=== PATIENT | male | born 1935 | race Caucasian/White ===

== ENCOUNTER 2018-08-14 12:22 | Emergency (ER) | END 2018-08-14 18:26 | disposition home or self-care (01) ==

== ENCOUNTER 2019-03-04 22:09 | Inpatient (IN) | payer MEDICARE, BC ==
[~2019-03-04] VITALS: Ht 172.7 cm; Wt 83.8 kg
[~2019-03-04 22:09] MED LIST: ACET-141 PO; DOCU-144 PO; DONE5TAB7 PO; HYDR-3498 PO; LORA1TAB PO; MECL12.574 PO; METO-319 PO; OMEP20CA16 PO; ONDA4TAB14 PO; OXYB10TA6 PO; RSV10T PO; SULF500T5 PO
[2019-03-04] MEDS ORDERED: IOHEXOL 100 ML ONE (22:16)
[2019-03-04] MEDS ORDERED: SOD CHLORIDE 0.9% 100 ML ONE (22:16)
[2019-03-04] MEDS ORDERED: ASPIRIN 325 MG TAB PO ONE (23:30)
--- NOTE | 2019-03-04 23:40 | STROKE ---
Date/Time of Note Date/Time of Note DATE: 03/04/19 TIME: 23:12 Patient Information General Patient location: emergency Arrival Date 03/04/19 Onset Date: March 04, 2019 Age 84 Gender male Weight Clinical Presentation found down with right sided weakness Patient History Past Medical History Hypertension Current Medications Allergies: Coded Allergies: No Known Allergy (Unverified , 12/29/15) Labs Coagulation Labs: Coagulation Test 03/04/19 22:37 Activated Partial Thromboplast Time 32.1 Sec (23.0-35.0) History & Physical History of Present Illness 84 yo M with HTN who was found down with right sided weakness at around 6:30pm on 03/04/19 by his family. They previously saw him normal earlier this morning after breakfast. The family subsequently went out to dinner together and also noticed clumsiness with his right hand. Review of Systems All Other Systems: Reviewed and Negative NIH Stroke Scale NIH Stroke Scale [id number] opia [id number] limb [id number] Dysarthria: Tudcz7i l Score: [id number] Date/Time Recorded DATE: 03/04/19 TIME: 23:12 Submitted By Francisco Peguero t-PA Imaging Review Date/Time Imaging Reviewed DATE: 03/04/19 TIME: 23:12 t-PA Administration Recommendation: No Weight Recommedation submitted by Francisco Peguero Reason t-PA not Recommended Presenting outside the eligible time window t-PA Not Recommended Date/Time 03/04/19 22:28 Recommendations Impression [address] Site: [address] Cerebral arteries Diagnosis 84 yo M with vascular risk factors who presents with right sided weakness, dysarthria, and clumsy hand. NIHSS 3. CT studies were negative for acute processes, including no large vessel occlusion or flow limiting stenosis. TPA was not recommended as he presented outside the eligible time window. The leading etiology is ischemic stroke, likely lacunar syndrome. Recommendation 1) MRI/MRA Brain head/neck to determine stroke burden 2) Neurology consult to guide ischemic/embolic workup: TTE w bubble, LDL, A1c, telemetry admission. 3) permissive HTN for 24h (treat for SBP>220). 4) medical workup to evaluate for other provoking causes (ie infection, metabolic derangement). 5) start dual antiplatelets (ASA81 and Plavix 75 daily) x 21 days then ASA 81 monotherapy thereafter FRANCISCO PEGUERO MD March 04, 2019 23:35
[2019-03-05] VITALS (9 sets, daily range): BP systolic 147–157; BP diastolic 66–75; PULSE 68–77; RESP 18–20; Ht 172.7 cm; Wt 83.8 kg
[2019-03-05] MEDS ORDERED: CLOPIDOGREL 75 MG TAB PO ONE
--- NOTE | 2019-03-05 01:10 | ERD ---
ER Documentation Chief Complaint Chief Complaint Facial droop and weakness HPI This is an 84-year-old male brought in by family after having acute onset of right-sided facial droop and weakness when they saw him at 6:30 PM approximately 4 hours prior to arrival. According to the family last exam completely normal was this morning. Apparently had dysarthria difficulty word finding, and difficulty with pjppcy-ky-[id number] and putting food in his mouth. They brought him in at today noticed that it was worse at dinner. Upon arrival patient does have a facial droop and mild dysarthria. Code stroke was immediately called and patient was taken to CAT scan. Telemetry neurology was also consulted immediately ROS All systems reviewed and are negative except as per history of present illness. Medications Home Meds Active Scripts Ondansetron (Ondansetron Odt) 4 Mg Tab.rapdis, 4 MG PO Q6H PRN for NAUSEA AND/OR VOMITING, #10 TAB Prov:ARGELIA TILLMAN MD 08/14/18 Meclizine Hcl* (Antivert*) 12.5 Mg Tab, 25 MG PO Q6H PRN for DIZZINESS, #20 TAB Prov:ARGELIA TILLMAN MD 08/14/18 Docusate Sodium* (Colace*) 100 Mg Capsule, 100 MG PO DAILY, #30 CAP Prov:TANYA NASH MD 12/29/15 Hydrocodone Bit-Acetaminophen* ([place]*) 5-325 Mg Tab, 1 TAB PO Q6 PRN for PAIN, #20 TAB Prov:TANYA NASH MD 12/29/15 Reported Medications Acetaminophen* (Acetaminophen*) 500 MG Extra Strength Tablet, 500 MG PO Q4H PRN for PAIN AND OR ELEVATED TEMP, TAB 12/29/15 Lorazepam* (Lorazepam*) 1 Mg Tablet, 1 MG PO HS PRN for SLEEP, #30 TAB 12/29/15 Omeprazole* (Omeprazole*) 20 Mg Capsule.dr, 20 MG PO DAILY, #30 CAP 12/29/15 Sulfasalazine* (Sulfazine*) 500 Mg Tablet, 1000 MG PO QID, TAB 12/29/15 Oxybutynin Chloride* (Ditropan* XL) 10 Mg Tab.er.24, 10 MG PO DAILY, TAB.SA 12/29/15 Donepezil* (Donepezil*) 5 Mg Tablet, 5 MG PO BID, #30 TAB 12/29/15 Rosuvastatin Calcium* (Crestor*) 10 Mg Tablet, 10 MG PO QHS, #30 TAB 12/29/15 Metoprolol Succinate* (Toprol XL*) 50 Mg Tab.er.24h, 50 MG PO DAILY, #30 TAB 12/29/15 Allergies Allergies: Coded Allergies: No Known Allergy (Unverified , 12/29/15) PMhx/Soc History of Surgery: No Anesthesia Reaction: No Hx 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 Disorder: No Hx Respiratory Disorders: No Hx Cardiac Disorders: Yes (HTN) Hx Psychiatric Problems: No Hx Miscellaneous Medical Probl: Yes (Prostate, Leukemia) Hx Alcohol Use: No Hx Substance Use: No Hx Tobacco Use: No Physical Exam Vitals Vital Signs Date Temp Pulse Resp B/P (MAP) Pulse Ox O2 O2 Flow FiO2 Time Delivery Rate 03/04/19 56 16 177/87 98 Room Air 22:30 (117) Physical Exam Const: No acute distress Head: Atraumatic Eyes: Normal Conjunctiva ENT: Normal External Ears, Nose and Mouth. Neck: Full range of motion. No meningismus. Resp: Clear to auscultation bilaterally Cardio: Regular rate and rhythm, no murmurs Abd: Soft, non tender, non distended. Normal bowel sounds Skin: No petechiae or rashes Back: No midline or flank tenderness Ext: No cyanosis, or edema Neur: Awake and alert, right-sided facial droop noted with forehead sparing. Right-sided cerebellar function is not intact on [id number] and pogq-oj-jewq. Psych: Normal Mood and Affect Result Diagram: 03/04/19223603/04/192236 Results 24 hrs Laboratory Tests Test 03/04/19 22:37 White Blood Count 7.5 10^3/ul Red Blood Count 3.21 10^6/ul Hemoglobin 9.6 g/dl Hematocrit 31.2 % Mean Corpuscular Volume 97.2 fl Mean Corpuscular Hemoglobin 29.9 pg Mean Corpuscular Hemoglobin Concent 30.8 g/dl Red Cell Distribution Width 14.2 % Platelet Count 198 10^3/UL Mean Platelet Volume 8.0 fl Immature Granulocytes % 0.400 % Neutrophils % 38.7 % Lymphocytes % 43.5 % Monocytes % 11.6 % Eosinophils % 5.1 % Basophils % 0.7 % Nucleated Red Blood Cells % 0.0 /100WBC Immature Granulocytes # 0.030 10^3/ul Neutrophils # 2.9 10^3/ul Lymphocytes # 3.3 10^3/ul Monocytes # 0.9 10^3/ul Eosinophils # 0.4 10^3/ul Basophils # 0.1 10^3/ul Nucleated Red Blood Cells # 0.0 10^3/ul Prothrombin Time 14.2 Sec Prothrombin Time Ratio 1.1 INR International Normalized Ratio 1.09 Activated Partial Thromboplast Time 32.1 Sec Sodium Level 141 mmol/L Potassium Level 3.4 mmol/L Chloride Level 108 mmol/L Carbon Dioxide Level 26 mmol/L Anion Gap 7 Blood Urea Nitrogen 31 mg/dl Creatinine 0.92 mg/dl Est Glomerular Filtrat Rate mL/min mL/min Glucose Level 132 mg/dl Hemoglobin A1c 5.4 % Calcium Level 8.2 mg/dl Total Bilirubin 0.0 mg/dl Direct Bilirubin 0.00 mg/dl Indirect Bilirubin 0.0 mg/dl Aspartate Amino Transf (AST/SGOT) 18 IU/L Alanine Aminotransferase (ALT/SGPT) 23 IU/L Alkaline Phosphatase 87 IU/L Creatine Kinase 127 IU/L Creatine Kinase Index 1.8 Creatinine Kinase MB (Mass) 2.30 ng/ml Troponin I < 0.012 ng/ml Total Protein 6.2 g/dl Albumin 3.0 g/dl Globulin 3.20 g/dl Albumin/Globulin Ratio 0.93 Triglycerides Level 98 mg/dl Cholesterol Level 101 mg/dl LDL Cholesterol, Calculated 58 mg/dl HDL Cholesterol 23 mg/dl Cholesterol/HDL Ratio 4.3 RATIO Ethyl Alcohol Level < 10.0 mg/dl Current Medications Medications Dose Sig/Jose De Jesus Start Time Status Last (Trade) Ordered Route PRN Stop Time Admin Dose Reason Admin IV Flush 10 ml STK-MED 03/04/19 DC 03/04/19 (NS 10 ml) ONCE .ROUTE 22:16 03/04/19 22:16 22:17 Sodium 100 ml @ ud STK-MED 03/04/19 DC 03/04/19 Chloride ONCE .ROUTE 22:16 03/04/19 22:16 22:17 Iohexol 100 ml @ ud STK-MED 03/04/19 DC ONCE .ROUTE 22:16 03/04/19 22:17 Aspirin 325 mg ONCE ONCE 03/04/19 DC 03/04/19 (Aspirin) PO 23:30 03/04/19 23:46 23:31 Clopidogrel 75 mg ONCE ONCE 03/05/19 DC 03/05/19 Bisulfate PO 00:00 03/05/19 00:48 (plaVIX) 00:01 Procedures/MDM Emergency department course: Patient seen and evaluate triage and was immediately notified the ER MD. Code stroke called. Telemetry neurology paged. Patient taken to CT for noncontrast head CT along with CT angios of the head and neck. Upon arrival back from CAT scan, patient's symptoms had completely resolved. After discussing with telemetry neurology, patient was obviously not a TPA candidate, however he did recommend aspirin and Plavix which was given. Patient's primary care physician is Dr. Hendrix. On-call physician Dr. Rodríguez was notified of admission. Family kept apprised of all results EKG: Rate/Rhythm: [Normal Sinus Rhythm] QRS, ST, T-waves: [No changes consistent w/ acute ischemia] Impression: [No evidence of ischemia or arrhythmia] Chest X-ray 1V Interpreted by me: Soft Tissue: No acute abnormalities Bones: No acute abnormalities Mediastinum/Cardiac Silhouette/Lungs: [No acute abnormalities] . Medical decision making: This is an 84-year-old male who at this point must be considered a TIA. Patient is on aspirin and Plavix per telemetry neurology r equest. Patient admitted to on-call physician for primary care physician. Admitted to telemetric setting. Continues to have stable neurological exam here in the emergency department. Critical Care: Time: 45 minutes, independent of any separately billable procedural time Treatments/Evaluations: Close monitoring and treatment of unstable vital signs, cardiorespiratory, and neurologic status, while maintaining tight balance of fluid, respiratory, and cardiac interventions. Departure Diagnosis: Primary Impression: TIA (transient ischemic attack) Condition: Critical CHARLES CANTRELL March 05, 2019 01:10
[2019-03-05] MEDS ORDERED: hydrALAzine 20 MG INJ IV ONE (06:00)
[2019-03-05] MEDS ORDERED: DONE5TAB7 PO (07:36)
[2019-03-05] MEDS ORDERED: METO-319 PO (07:37)
[2019-03-05] MEDS ORDERED: LORA1TAB PO (07:37)
[2019-03-05] MEDS ORDERED: OMEP20CA16 PO (07:37)
[2019-03-05] MEDS ORDERED: RSV10T PO (07:38)
[2019-03-05] MEDS ORDERED: MEMA5TAB PO (07:38)
[2019-03-05] MEDS ORDERED: OXYB5TAB22 PO (07:38)
[2019-03-05] MEDS ORDERED: ACETAMINOPHEN 325 MG TAB PO PRN (13:00)
[2019-03-05] MEDS ORDERED: NACL 0.9% 3 ML SYG IV SCH (13:00)
[2019-03-05] MEDS ORDERED: ONDANSETRON 4 MG TAB PO PRN (13:00)
[2019-03-05] MEDS ORDERED: POTASSIUM CHLORIDE (SR) 10 MEQ TAB PO ONE (13:00)
[2019-03-05] MEDS ORDERED: DOCUSATE SODIUM 100 MG CAP PO PRN (13:00)
[2019-03-05] MEDS: SOD CHLORIDE 0.9% 1,000 ML IV SCH (14:02)
[2019-03-05] MEDS: SULFASALAZINE 500 MG TAB PO SCH ×3 (14:03→20:25)
--- NOTE | 2019-03-05 14:49 | HP ---
DATE OF ADMISSION: 03/04/2019 IDENTIFYING DATA: The patient is an 84-year-old male admitted to the hospital with weakness of the r ight side of his face and right upper extremity approximately 18 hours ago. HISTORICAL EVENTS: As revealed to me by the patient's and son at the bedside, it was yesterday late afternoon when they returned home and found the patient sitting on the floor, alert. Given the patient's dementia he has no recollection of falling or even being on the floor. They were able to g et him up and walk him, although his legs were quite wobbly. He seemed to have some drooping involvi ng the right side of his face and had difficulty trying to feed himself with poor coordination of the right upper extremity. Because of this, the patient was ultimately brought to [facility] and evaluated. Today, the patient notes no headache, pathologic visual symptoms, nausea, vomiting, a bdominal pain, chest pain, palpitations. There has been no history of recent head trauma. 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 History of acute myel ogenous leukemia in 1999, having remained in remission. 2. History of Crohn's colitis. 3. Former smoker. 4. Stress echo in 01/2011 revealed no ischemia. 5. History of hypertension. 6. Hyperlipidemia. 7. History of prostate cancer treated with radiation and history of benign bladder tumor followed by urology. 8. History of right leg sciatica. MRI unrevealing. Remote. 9. History of vitamin D deficiency. PRESENT MEDICATIONS: 1. Namenda 5 mg b.i.d. 2. Aricept 5 mg b.i.d. 3. Sulfasalazine 500 mg 2 tablets 4 times a day. 4. Ditropan XL 10 mg per day. 5. Omeprazole 20 mg per day. 6. Metoprolol 50 mg per day. SOCIAL HISTORY: . Does not drink. Prior smoker. PHYSICAL EXAMINATION: GENERAL: [place] male, no acute distress. VITAL SIGNS: BP 126/80, pulse 72, respirations were 18. He was afebrile. EYES: Extraocular muscles were full. NOSE, MOUTH, AND THROAT: Normal. NECK: Supple without jugular venous distention, thyroid enlargement or adenopathy. Carotids 2+, no bruits. LUNGS: Clear. HEART: Rhythm regular, I/ systolic murmur. No third or fourth sound. ABDOMEN: Nontender. Liver and spleen were not palpable. No mass or tenderness was noted. EXTREMITIES: No edema. Calves nontender. Pulses reduced distally. NEUROLOGIC: No lateralizing motor weakness. He was not oriented to person, place and time. IMPRESSION: 1. Likely transient ischemic attack. 2. Known cerebrovascular disease. 3. History of hypertension. 4. 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 PLAN: Echocardiogram to be obtained. Neuro and cardiology to evaluate, dysrhythmia to have to be ex cluded. PT to be certain safe with ambulation. Unclear to me why he was not on aspirin but clearly this is needed at this point. Dictated By: JOSUE LYNCH/JOCELYNN Conf#: [id number] DID#: [id number]
--- NOTE | 2019-03-05 14:57 | CONS ---
Assessment/Plan Assessment/Plan Hospital Course 84 yo M with hx of dementia and cerebrovascular risk factors who presents for evaluation of a transient R face/arm weakness... for which neurology is consulted. The clinical picture is most ominously concerning for TIA/minor stroke. Seizure is less likely, though additionally considered. Recrudescence is a diagnosis of exclusion. CTH is without acute intracranial pathology, though notable for chronic R basal ganglia infarct. CTA H/N is notable for mild, generalized intracranial athero. P: Await MRI/MRA brain without contrast for further characterization Agree with ASA/Lipitor for secondary stroke prevention Permissive HTN (up to 220/110) for 24h pending the above Await UA [place] as necessary Ok to continue Aricept/Namenda per ops PT/OT/ST as necessary Will follow clinically, to recommend neurologic studies, as necessary Consultation Date/Type/Reason Admit Date/Time March 04, 2019 at 23:23 Type of Consult Neurology Reason for Consultation R face/arm weakness Requesting Provider: JOSUE WADE MD Date/Time of Note DATE: 03/05/19 TIME: 14:57 Hx of Present Illness 84 yo M with hx of dementia, HTN, HLD, and other comorbidities who presented to the ED with c/o R face/arm weakness. History was obtained from pt, , and chart review. Per the , the pt was eating dinner yesterday around 6:30pm when his family noticed that he had a R facial droop. He also states that he tried to pick and shovel man food with his R hand and was unable to do so. They state that it lasted for about 45 minutes before completely resolving. Out of concern for a possible stroke, his family took him to the ED. He currently denies any headache, dizziness, lethargy, confusion, weakness, vision or speech changes, numbness or tingling. He reportedly has unsteady gait at his baseline and ambulates with a walker. It is additionally elsewhere noted: IDENTIFYING DATA: The patient is an 84-year-old male admitted to the hospital with weakness of the right side of his face and right upper extremity approximately 18 hours ago. HISTORICAL EVENTS: As revealed to me by the patient's and son at the bedside, it was yesterday late afternoon when they returned home and found the patient sitting on the floor, alert. Given the patient's dementia he has no recollection of falling or even being on the floor. They were able to get him up and walk him, although his legs were quite wobbly. He seemed to have some drooping involving the right side of his face and had difficulty trying to feed himself with poor coordination of the right upper extremity. Because of this, the patient was ultimately brought to [facility] and evaluated. Today, the patient notes no headache, pathologic visual symptoms, nausea, vomiting, abdominal pain, chest pain, palpitations. There has been no history of recent head trauma. negative unless otherwise noted in HPI Exam/Review of Systems Exam Vitals Vital Signs Date Temp Pulse Resp B/P (MAP) Pulse Ox O2 O2 Flow FiO2 Time Delivery Rate 03/05/19 77 13:32 03/05/19 98.0 20 157/68 95 12:06 (97) 03/05/19 Room Air 10:30 Exam PE: Gen Appearance: No Apparent Distress HEENT: Normocephalic Cardiovascular: Regular rate Lungs: Clear bilaterally Abdomen: Soft Extremities: Dry NE: The patient was alert and oriented. Language was normal. Fund of knowledge was normal. Pupils were equal and reactive to light. There was no afferent pupillary defect. Visual pelayo were normal. Funduscopic examination was limited. Extra-ocular movements were full. Ptosis was absent. There was no nystagmus. Facial sensation was normal. Face was symmetric with normal strength. Hearing was intact. Palate movements were normal. Neck strength was normal. There was normal tongue bulk and speed of movement. Tone was normal. Muscle bulk was normal. I did not see fasciculations. Arms and legs were strong to confrontation. Vibration sensation was normal. Temperature and pinprick sensation was normal. Rapid alternating movements were normal. There was minor dysmetria in the RUE. There was no intention tremor. Gait was deferred due to bedrest. Arm and leg reflexes were 2+ and symmetric. Genao's sign was absent. Plantar responses were flexor. Results Result Diagram: 03/04/19223603/04/192236 Results 24hrs Laboratory Tests Test 03/04/19 22:37 White Blood Count 7.5 # Red Blood Count 3.21 #L Hemoglobin 9.6 #L Hematocrit 31.2 #L Mean Corpuscular Volume 97.2 Mean Corpuscular Hemoglobin 29.9 Mean Corpuscular Hemoglobin Concent 30.8 L Red Cell Distribution Width 14.2 Platelet Count 198 # Mean Platelet Volume 8.0 Immature Granulocytes % 0.400 Neutrophils % 38.7 L Lymphocytes % 43.5 Monocytes % 11.6 H Eosinophils % 5.1 Basophils % 0.7 Nucleated Red Blood Cells % 0.0 Immature Granulocytes # 0.030 Neutrophils # 2.9 Lymphocytes # 3.3 H Monocytes # 0.9 Eosinophils # 0.4 Basophils # 0.1 Nucleated Red Blood Cells # 0.0 Prothrombin Time 14.2 Prothrombin Time Ratio 1.1 INR International Normalized Ratio 1.09 Activated Partial Thromboplast Time 32.1 Sodium Level 141 Potassium Level 3.4 L Chloride Level 108 Carbon Dioxide Level 26 Anion Gap 7 Blood Urea Nitrogen 31 H Creatinine 0.92 Est Glomerular Filtrat Rate mL/min Glucose Level 132 Hemoglobin A1c 5.4 Calcium Level 8.2 L Total Bilirubin 0.0 L Direct Bilirubin 0.00 Indirect Bilirubin 0.0 Aspartate Amino Transf (AST/SGOT) 18 Alanine Aminotransferase (ALT/SGPT) 23 Alkaline Phosphatase 87 Creatine Kinase 127 Creatine Kinase Index 1.8 Creatinine Kinase MB (Mass) 2.30 Troponin I < 0.012 Total Protein 6.2 Albumin 3.0 L Globulin 3.20 Albumin/Globulin Ratio 0.93 Triglycerides Level 98 Cholesterol Level 101 LDL Cholesterol, Calculated 58 HDL Cholesterol 23 L Cholesterol/HDL Ratio 4.3 Ethyl Alcohol Level < 10.0 H Medications Medication Current Medications IV Flush (NS 3 ml) 3 ml PER PROTOCOL IV ; Start 03/05/19 at 13:00 Ondansetron HCl (Zofran Tab) 4 mg Q6H PRN PO NAUSEA/VOMITING; Start 03/05/19 at 13:00 Acetaminophen (Tylenol Tab) 650 mg Q6H PRN PO .PAIN 1-3 OR TEMP; Start 03/05/19 at 13:00 Docusate Sodium (Colace) 100 mg Q12H PRN PO .CONSTIPATION; Start 03/05/19 at 13:00 Sodium Chloride 1,000 ml @ 50 mls/hr Q20H IV Last administered on 03/05/19at 14:02; Admin Dose 50 MLS/HR; Start 03/05/19 at 13:00 Aspirin (Ecotrin) 325 mg DAILY PO ; Start 03/06/19 at 09:00 Atorvastatin Calcium (Lipitor) 10 mg HS PO ; Start 03/05/19 at 21:00 Metoprolol Succinate (Toprol Xl) 25 mg BID PO ; Start 03/05/19 at 21:00 Sulfasalazine (Azulfidine) 1,000 mg QID PO Last administered on 03/05/19at 14:03; Admin Dose 1,000 MG; Start 03/05/19 at 13:00 Oxybutynin Chloride (Ditropan Xl) 10 mg DAILY PO ; Start 03/06/19 at 09:00 Pantoprazole (Protonix Tab) 40 mg DAILY@06 PO ; Start 03/06/19 at 06:00 Donepezil HCl (Aricept) 5 mg BID PO ; Start 03/05/19 at 21:00 Past Medical History reviewed Home Meds Reported Medications Memantine* (Namenda*) 5 Mg Tablet, 5 MG PO BID, #60 TAB 03/05/19 Rosuvastatin Calcium* (Crestor*) 10 Mg Tablet, 10 MG PO QHS, #30 TAB 03/05/19 Oxybutynin Chloride* (Ditropan* XL) 5 Mg Tabsr, 5 MG PO DAILY, TAB.SA 03/05/19 Omeprazole* (Omeprazole*) 20 Mg Capsule.dr, 20 MG PO DAILY, #30 CAP 03/05/19 Metoprolol Succinate* (Toprol XL*) 50 Mg Tab.er.24h, 50 MG PO DAILY, #30 TAB 03/05/19 Lorazepam* (Lorazepam*) 1 Mg Tablet, 1 MG PO HS PRN for SLEEP, #30 TAB 03/05/19 Donepezil* (Donepezil*) 5 Mg Tablet, 5 MG PO BID, #30 TAB 03/05/19 Discontinued Reported Medications Acetaminophen* (Acetaminophen*) 500 MG Extra Strength Tablet, 500 MG PO Q4H PRN for PAIN AND OR ELEVATED TEMP, TAB 12/29/15 Lorazepam* (Lorazepam*) 1 Mg Tablet, 1 MG PO HS PRN for SLEEP, #30 TAB 12/29/15 Omeprazole* (Omeprazole*) 20 Mg Capsule.dr, 20 MG PO DAILY, #30 CAP 12/29/15 Sulfasalazine* (Sulfazine*) 500 Mg Tablet, 1000 MG PO QID, TAB 12/29/15 Oxybutynin Chloride* (Ditropan* XL) 10 Mg Tab.er.24, 10 MG PO DAILY, TAB.SA 12/29/15 Donepezil* (Donepezil*) 5 Mg Tablet, 5 MG PO BID, #30 TAB 12/29/15 Rosuvastatin Calcium* (Crestor*) 10 Mg Tablet, 10 MG PO QHS, #30 TAB 12/29/15 Metoprolol Succinate* (Toprol XL*) 50 Mg Tab.er.24h, 50 MG PO DAILY, #30 TAB 12/29/15 Discontinued Scripts Ondansetron (Ondansetron Odt) 4 Mg Tab.rapdis, 4 MG PO Q6H PRN for NAUSEA AND/OR VOMITING, #10 TAB Prov:ARGELIA TILLMAN MD 08/14/18 Meclizine Hcl* (Antivert*) 12.5 Mg Tab, 25 MG PO Q6H PRN for DIZZINESS, #20 TAB Prov:ARGELIA TILLMAN MD 08/14/18 Docusate Sodium* (Colace*) 100 Mg Capsule, 100 MG PO DAILY, #30 CAP Prov:TANYA NASH MD 12/29/15 Hydrocodone Bit-Acetaminophen* ([place]*) 5-325 Mg Tab, 1 TAB PO Q6 PRN for PAIN, #20 TAB Prov:TANYA NASH MD 12/29/15 Medications Current Medications IV Flush (NS 3 ml) 3 ml PER PROTOCOL IV ; Start 03/05/19 at 13:00 Ondansetron HCl (Zofran Tab) 4 mg Q6H PRN PO NAUSEA/VOMITING; Start 03/05/19 at 13:00 Acetaminophen (Tylenol Tab) 650 mg Q6H PRN PO .PAIN 1-3 OR TEMP; Start 03/05/19 at 13:00 Docusate Sodium (Colace) 100 mg Q12H PRN PO .CONSTIPATION; Start 03/05/19 at 13:00 Sodium Chloride 1,000 ml @ 50 mls/hr Q20H IV Last administered on 03/05/19at 14:02; Admin Dose 50 MLS/HR; Start 03/05/19 at 13:00 Aspirin (Ecotrin) 325 mg DAILY PO ; Start 03/06/19 at 09:00 Atorvastatin Calcium (Lipitor) 10 mg HS PO ; Start 03/05/19 at 21:00 Metoprolol Succinate (Toprol Xl) 25 mg BID PO ; Start 03/05/19 at 21:00 Sulfasalazine (Azulfidine) 1,000 mg QID PO Last administered on 03/05/19at 14:03; Admin Dose 1,000 MG; Start 03/05/19 at 13:00 Oxybutynin Chloride (Ditropan Xl) 10 mg DAILY PO ; Start 03/06/19 at 09:00 Pantoprazole (Protonix Tab) 40 mg DAILY@06 PO ; Start 03/06/19 at 06:00 Donepezil HCl (Aricept) 5 mg BID PO ; Start 03/05/19 at 21:00 Allergies: Coded Allergies: No Known Allergy (Unverified , 03/05/19) Social History Smoking Status: Never smoker CASSANDRA FULLER NP March 05, 2019 14:57 JULIANNA ELLIOTT March 05, 2019 17:33
[2019-03-05] MEDS: ATORVASTATIN 10 MG TAB PO SCH (20:24)
[2019-03-05] MEDS: DONEPEZIL 5 MG TAB PO SCH (20:25)
[2019-03-05] MEDS: METOPROLOL (XL) 25 MG TAB PO SCH (20:25)
[2019-03-05] MEDS ORDERED: LORAZEPAM 1 MG TAB PO PRN ×2 (20:30)
[2019-03-05] MEDS ORDERED: DONEPEZIL 5 MG TAB PO SCH (21:00)
[2019-03-06] VITALS (13 sets, daily range): BP systolic 122–190; BP diastolic 68–106; PULSE 65–87; RESP 18–20
[2019-03-06] MEDS: PANTOPRAZOLE (EC) 40 MG TAB PO SCH (05:01)
[2019-03-06] MEDS: DONEPEZIL 5 MG TAB PO SCH ×2 (08:19→20:38)
[2019-03-06] MEDS: SULFASALAZINE 500 MG TAB PO SCH ×4 (08:19→20:39)
[2019-03-06] MEDS: OXYBUTYNIN (XL) 5 MG TAB PO SCH (08:19)
[2019-03-06] MEDS: ASPIRIN (EC) 325 MG TAB PO SCH (08:19)
[2019-03-06] MEDS: METOPROLOL (XL) 25 MG TAB PO SCH ×2 (08:20→20:39)
--- NOTE | 2019-03-06 08:30 | PN ---
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 MRI and MRA pending, cards to see, echo pending 2. HBP, controlled, inc BP parameter to avoid hypotension 3. PT to see 4. Cognitive impairment unchanged Result Diagram: 03/06/19 0711 03/06/19 0711 Results 24hrs Laboratory Tests Test 03/06/19 07:11 03/06/19 07:12 White Blood Count 8.0 Red Blood Count 3.78 L Hemoglobin 11.6 #L Hematocrit 35.9 L Mean Corpuscular Volume 95.0 Mean Corpuscular Hemoglobin 30.7 Mean Corpuscular Hemoglobin Concent 32.3 Red Cell Distribution Width 14.5 Platelet Count 263 # Mean Platelet Volume 8.6 Immature Granulocytes % 0.200 Neutrophils % 53.1 Lymphocytes % 34.2 Monocytes % 8.6 Eosinophils % 3.2 Basophils % 0.7 Nucleated Red Blood Cells % 0.0 Immature Granulocytes # 0.020 Neutrophils # 4.2 Lymphocytes # 2.7 Monocytes # 0.7 Eosinophils # 0.3 Basophils # 0.1 Nucleated Red Blood Cells # 0.0 Sodium Level 143 Potassium Level 3.7 Chloride Level 109 Carbon Dioxide Level 23 Anion Gap 11 Blood Urea Nitrogen 24 H Creatinine 0.89 Est Glomerular Filtrat Rate mL/min Glucose Level 119 Calcium Level 9.6 Phosphorus Level 3.3 Magnesium Level 2.2 Iron Level 92 Total Iron Binding Capacity Pending Percent Iron Saturation Pending Hemoglobin A1c 5.4 Subjective 24 Hr Interval Summary Respiratory: No cough, No shortness of breath Cardiovascular: no complaints Gastrointestinal: no complaints Genitourinary: no complaints Musculoskeletal: no complaints Neurologic: No dizziness, No focal-weakness, No headache Exam/Review of Systems Exam Vitals Vital Signs Date Temp Pulse Resp B/P (MAP) Pulse Ox O2 O2 Flow FiO2 Time Delivery Rate 03/06/19 97.4 79 20 182/106 94 Room Air 07:37 (131) Intake and Output 03/05/19 03/05/19 03/06/19 1515:00 23:00 07:00 IntakeIntake Total 400 ml 1060 ml OutputOutput Total 2 ml 350 ml BalanceBalance 398 ml 710 ml Neck: No jvd Respiratory: clear to auscultation Gastrointestinal: soft Extremities: No edema 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: other (right facial and rue weakness) Results Results 24hrs Laboratory Tests Test 03/06/19 07:11 03/06/19 07:12 White Blood Count 8.0 Red Blood Count 3.78 L Hemoglobin 11.6 #L Hematocrit 35.9 L Mean Corpuscular Volume 95.0 Mean Corpuscular Hemoglobin 30.7 Mean Corpuscular Hemoglobin Concent 32.3 Red Cell Distribution Width 14.5 Platelet Count 263 # Mean Platelet Volume 8.6 Immature Granulocytes % 0.200 Neutrophils % 53.1 Lymphocytes % 34.2 Monocytes % 8.6 Eosinophils % 3.2 Basophils % 0.7 Nucleated Red Blood Cells % 0.0 Immature Granulocytes # 0.020 Neutrophils # 4.2 Lymphocytes # 2.7 Monocytes # 0.7 Eosinophils # 0.3 Basophils # 0.1 Nucleated Red Blood Cells # 0.0 Sodium Level 143 Potassium Level 3.7 Chloride Level 109 Carbon Dioxide Level 23 Anion Gap 11 Blood Urea Nitrogen 24 H Creatinine 0.89 Est Glomerular Filtrat Rate mL/min Glucose Level 119 Calcium Level 9.6 Phosphorus Level 3.3 Magnesium Level 2.2 Iron Level 92 Total Iron Binding Capacity Pending Percent Iron Saturation Pending Hemoglobin A1c 5.4 Medications Medication Current Medications IV Flush (NS 3 ml) 3 ml PER PROTOCOL IV ; Start 03/05/19 at 13:00 Ondansetron HCl (Zofran Tab) 4 mg Q6H PRN PO NAUSEA/VOMITING; Start 03/05/19 at 13:00 Acetaminophen (Tylenol Tab) 650 mg Q6H PRN PO .PAIN 1-3 OR TEMP; Start 03/05/19 at 13:00 Docusate Sodium (Colace) 100 mg Q12H PRN PO .CONSTIPATION; Start 03/05/19 at 13:00 Sodium Chloride 1,000 ml @ 50 mls/hr Q20H IV Last administered on 03/05/19at 14:02; Admin Dose 50 MLS/HR; Start 03/05/19 at 13:00 Aspirin (Ecotrin) 325 mg DAILY PO ; Start 03/06/19 at 09:00 Atorvastatin Calcium (Lipitor) 10 mg HS PO Last administered on 03/05/19 20:24; Admin Dose 10 MG; Start 03/05/19 at 21:00 Metoprolol Succinate (Toprol Xl) 25 mg BID PO Last administered on 03/05/19 20:25; Admin Dose 25 MG; Start 03/05/19 at 21:00 Sulfasalazine (Azulfidine) 1,000 mg QID PO Last administered on 03/06/19 08:19; Admin Dose 1,000 MG; Start 03/05/19 at 13:00 Oxybutynin Chloride (Ditropan Xl) 10 mg DAILY PO ; Start 03/06/19 at 09:00 Pantoprazole (Protonix Tab) 40 mg DAILY@06 PO Last administered on 03/06/19 05:01; Admin Dose 40 MG; Start 03/06/19 at 06:00 Donepezil HCl (Aricept) 5 mg BID PO Last administered on 03/05/19 20:25; Admin Dose 5 MG; Start 03/05/19 at 21:00 Lorazepam (Ativan) 1 mg HS PRN PO SLEEP Last administered on 03/06/19 05:01; Admin Dose 1 MG; Start 03/05/19 at 20:30 Lorazepam (Ativan) 1 mg Q8H PRN PO ANXIETY/AGITATION Last administered on 03/05/19 20:25; Admin Dose 1 MG; Start 03/05/19 at 20:30 JOSUE WADE MD March 06, 2019 08:30
[2019-03-06] MEDS: SOD CHLORIDE 0.9% 1,000 ML IV SCH (09:00)
[2019-03-06] MEDS: NIFEdipine (XL) 30 MG TAB PO SCH ×2 (10:49→20:38)
[2019-03-06] MEDS ORDERED: NIFEdipine (XL) 30 MG TAB PO SCH (11:00)
--- NOTE | 2019-03-06 13:32 | RADRPT ---
Vent Rate: 75 bpm RR Interval: 796 msec KS Interval: 227 msec QRS Duration: 143 msec QT Interval: 459 msec QTC Interval: 514 msec P-R-T [place]: 66 - -3 - 65 degrees Sinus rhythm...normal P axis, V-rate 50- 99 Multiple ventricular premature complexes...V complexes w/ short R-R intervls Prolonged KS interval...KS >220, V-rate 50- 90 Right bundle branch block...QRSd>120, terminal axis(90,270) Prolonged QT interval...QTc >500mS Electronically Signed By: Chico Colbert
--- NOTE | 2019-03-06 13:53 | RADRPT ---
Echocardiogram Report Patient Name: STEPHANY CONNELLPatient ID: [id number] : 1935 (84y 2m)Study Date: 03/05/2019 1:16:00 PM Gender: MAccession #: [id number] Tech: Hamilton yAala [facility] Location: 3[address] Ref.Physician: JOSUE WADE Height(Cm): BSA: Weight(Kg): Quality: AdequateAccount #: Procedures: Echocardiographic Report: Transthoracic echocardiogram with complete 2D, M-Mode, and doppler examination. Indications: Transient Ischemic Attack. Measurements: 2D/M Mode Doppler Measurement Value Normal Range Measurement Value Normal Range LVIDd 2D 3.9 [ 4.2 - 5.8 ] cm AV Peak Ayden 1.4 [ 100.0 - 170.0 ] cm/sec LVIDs 2D 2.6 [ 2.5 - 4.0 ] cm AV Peak PG 8.0 [ 2.0 - 9.0 ] mmHg LVPWd 2D 1.0 [ 0.6 - 1.0 ] cm LVOT Peak Ayden 1.3 [ 70.0 - 110.0 ] cm/sec IVSd 2D 1.1 [ 0.6 - 1.0 ] cm LVOT Peak PG 7.0 [ 2.0 - 6.0 ] mmHg AoR Diam 2D 2.8 [ 2.6 - 3.4 ] cm MV E Peak Ayden 0.7 [ 60.0 - 130.0 ] cm/sec EDV 2D 65.9 [ 62.0 - 150.0 ] ml MV A Peak Ayden 1.2 [ 100.0 - 120.0 ] cm/sec ESV 2D 25.6 [ 21.0 - 61.0 ] ml MV E/A 0.6 [ 0.8 - 1.5 ] ratio EF 2D 61.2 [ 52.0 - 72.0 ] percent MV Decel Time 176 [ 104 - 258 ] msec LA Dimen 2D 3.4 [ 3.0 - 4.0 ] cm Lat E` Ayden 0.1 [ 10.0 - 15.0 ] cm/sec Lateral E/E` 9.2 [ 1.0 - 2.0 ] ratio MV E/A 0.6 [ 0.8 - 1.5 ] ratio TR Peak Ayden 2.6 [ 100.0 - 280.0 ] cm/sec TR Peak PG 27.0 mmHg RVSP 30.0 [ 10.0 - 36.0 ] mmHg Findings: Left Ventricle: Normal left ventricular systolic function. Normal left ventricular cavity size. Normal left ventricular wall thickness. Mild hypertrophy of the basal septum. Ejection fraction is visually estimated at 60-65 %. Tissue Doppler/Mitral Doppler indices are consistent with impaired relaxation (Stage I diastolic dysfunction). Right Ventricle: Normal right ventricular size. Normal right ventricular systolic function. Left Atrium: The left atrium is normal in size. Right Atrium: The right atrium is normal in size. Mitral Valve: Mild mitral annular calcification. Trace mitral regurgitation. Aortic Valve: No hemodynamically significant aortic stenosis by doppler. Aortic cusps appear mildly calcified. Mild aortic valve regurgitation. Tricuspid Valve: Normal appearance of the tricuspid valve. Right ventricular systolic pressure is consistent with mild pulmonary hypertension. Estimated peak PA systolic pressure 30 mmHg. There is mild tricuspid regurgitation. Pulmonic Valve: Normal pulmonic valve appearance. Pericardium: Normal pericardium with no significant pericardial effusion. Aorta: Normal aortic root. IVC: Normal size and normal respiratory collapse consistent with normal right atrial pressure. Conclusions: Normal left ventricular systolic function. Normal left ventricular cavity size. Normal left ventricular wall thickness. Mild hypertrophy of the basal septum. Ejection fraction is visually estimated at 60-65 %. Tissue Doppler/Mitral Doppler indices are consistent with impaired relaxation (Stage I diastolic dysfunction). Normal right ventricular size. Normal right ventricular systolic function. The left atrium is normal in size. Normal appearance of the tricuspid valve. Right ventricular systolic pressure is consistent with mild pulmonary hypertension. Estimated peak PA systolic pressure 30 mmHg. There is mild tricuspid regurgitation. No hemodynamically significant aortic stenosis by doppler. Aortic cusps appear mildly calcified. Mild aortic valve regurgitation. Normal pericardium with no significant pericardial effusion. Normal aortic root. Normal size and normal respiratory collapse consistent with normal right atrial pressure. No Vegetation, masses, or thrombi seen. Electronically Signed By: Randy Cadet 2019-03-06 13:52:25 PDT
--- NOTE | 2019-03-06 14:46 | CONS ---
Assessment/Plan Assessment/Plan Hospital Course (Demo Recall) TIA/CVA- MRI with subacute abnl, CT shows old lacunar infarcts. symptoms resolve. neuro following, permissive htn. w/u negative thus far cont tele monitoring. on asa/statin Consultation Date/Type/Reason Admit Date/Time March 04, 2019 at 23:23 Date of Consultation: March 06, 2019 Type of Consult Cardiology Reason for Consultation Stroke Requesting Provider: JOSUE WADE MD Date/Time of Note DATE: 03/06/19 TIME: 14:34 Hx of Present Illness Mr. Davis is a 84 y.o. man with h/o dementia, htn/hld, who presented with R face/arm weakness 5/6 evening. Symptoms lasted x 45 mins then resolved. pt found to have acute cva on MRI. has been seen/evaluated by neuro. MRA without acute large vessel occlusion. Echo with mild aortic valve calcification, normal lv systolic fxn, no sig mitral valve disease He currently denies any headache, dizziness, lethargy, confusion, weakness, vision or speech changes, numbness or tingling. At baseline he ambulates with a walker. all other systems negative Past Medical History 1. History of acute myelogenous leukemia in remission. 2. History of Crohn's colitis. 3. Former smoker. 4. History of hypertension. 5. Hyperlipidemia. 6. History of prostate cancer treated with radiation and history of benign bladder tumor followed by urology. SOCIAL HISTORY: . Does not drink. Prior smoker. Home Meds Reported Medications Memantine* (Namenda*) 5 Mg Tablet, 5 MG PO BID, #60 TAB 03/05/19 Rosuvastatin Calcium* (Crestor*) 10 Mg Tablet, 10 MG PO QHS, #30 TAB 03/05/19 Oxybutynin Chloride* (Ditropan* XL) 5 Mg Tabsr, 5 MG PO DAILY, TAB.SA 03/05/19 Omeprazole* (Omeprazole*) 20 Mg Capsule.dr, 20 MG PO DAILY, #30 CAP 03/05/19 Metoprolol Succinate* (Toprol XL*) 50 Mg Tab.er.24h, 50 MG PO DAILY, #30 TAB 03/05/19 Lorazepam* (Lorazepam*) 1 Mg Tablet, 1 MG PO HS PRN for SLEEP, #30 TAB 03/05/19 Donepezil* (Donepezil*) 5 Mg Tablet, 5 MG PO BID, #30 TAB 03/05/19 Discontinued Reported Medications Acetaminophen* (Acetaminophen*) 500 MG Extra Strength Tablet, 500 MG PO Q4H PRN for PAIN AND OR ELEVATED TEMP, TAB 12/29/15 Lorazepam* (Lorazepam*) 1 Mg Tablet, 1 MG PO HS PRN for SLEEP, #30 TAB 12/29/15 Omeprazole* (Omeprazole*) 20 Mg Capsule.dr, 20 MG PO DAILY, #30 CAP 12/29/15 Sulfasalazine* (Sulfazine*) 500 Mg Tablet, 1000 MG PO QID, TAB 12/29/15 Oxybutynin Chloride* (Ditropan* XL) 10 Mg Tab.er.24, 10 MG PO DAILY, TAB.SA 12/29/15 Donepezil* (Donepezil*) 5 Mg Tablet, 5 MG PO BID, #30 TAB 12/29/15 Rosuvastatin Calcium* (Crestor*) 10 Mg Tablet, 10 MG PO QHS, #30 TAB 12/29/15 Metoprolol Succinate* (Toprol XL*) 50 Mg Tab.er.24h, 50 MG PO DAILY, #30 TAB 12/29/15 Discontinued Scripts Ondansetron (Ondansetron Odt) 4 Mg Tab.rapdis, 4 MG PO Q6H PRN for NAUSEA AND/OR VOMITING, #10 TAB Prov:ARGELIA TILLMAN MD 08/14/18 Meclizine Hcl* (Antivert*) 12.5 Mg Tab, 25 MG PO Q6H PRN for DIZZINESS, #20 TAB Prov:ARGELIA TILLMAN MD 08/14/18 Docusate Sodium* (Colace*) 100 Mg Capsule, 100 MG PO DAILY, #30 CAP Prov:TANYA NASH MD 12/29/15 Hydrocodone Bit-Acetaminophen* ([place]*) 5-325 Mg Tab, 1 TAB PO Q6 PRN for PAIN, #20 TAB Prov:TANYA NASH MD 12/29/15 Medications Current Medications IV Flush (NS 3 ml) 3 ml PER PROTOCOL IV ; Start 03/05/19 at 13:00 Ondansetron HCl (Zofran Tab) 4 mg Q6H PRN PO NAUSEA/VOMITING; Start 03/05/19 at 13:00 Acetaminophen (Tylenol Tab) 650 mg Q6H PRN PO .PAIN 1-3 OR TEMP Last administered on 03/06/19 10:49; Admin Dose 650 MG; Start 03/05/19 at 13:00 Docusate Sodium (Colace) 100 mg Q12H PRN PO .CONSTIPATION; Start 03/05/19 at 13:00 Sodium Chloride 1,000 ml @ 50 mls/hr Q20H IV Last administered on 03/05/19 14:02; Admin Dose 50 MLS/HR; Start 03/05/19 at 13:00 Aspirin (Ecotrin) 325 mg DAILY PO Last administered on 03/06/19 08:19; Admin Dose 325 MG; Start 03/06/19 at 09:00 Atorvastatin Calcium (Lipitor) 10 mg HS PO Last administered on 03/05/19 20:24; Admin Dose 10 MG; Start 03/05/19 at 21:00 Metoprolol Succinate (Toprol Xl) 25 mg BID PO Last administered on 03/06/19 08:20; Admin Dose 25 MG; Start 03/05/19 at 21:00 Sulfasalazine (Azulfidine) 1,000 mg QID PO Last administered on 03/06/19 12:55; Admin Dose 1,000 MG; Start 03/05/19 at 13:00 Oxybutynin Chloride (Ditropan Xl) 10 mg DAILY PO Last administered on 03/06/19 08:19; Admin Dose 10 MG; Start 03/06/19 at 09:00 Pantoprazole (Protonix Tab) 40 mg DAILY@06 PO Last administered on 03/06/19 05:01; Admin Dose 40 MG; Start 03/06/19 at 06:00 Donepezil HCl (Aricept) 5 mg BID PO Last administered on 03/06/19 08:19; Admin Dose 5 MG; Start 03/05/19 at 21:00 Lorazepam (Ativan) 1 mg HS PRN PO SLEEP Last administered on 03/06/19 05:01; Admin Dose 1 MG; Start 03/05/19 at 20:30 Nifedipine (Procardia Xl) 30 mg BID PO Last administered on 03/06/19 10:49; Admin Dose 30 MG; Start 03/06/19 at 10:30 Clonidine (Catapres) 0.1 mg Q8 GTB Last administered on 03/06/19at 13:45; Admin Dose 0.1 MG; Start 03/06/19 at 14:00 Allergies: Coded Allergies: No Known Allergy (Unverified , 03/05/19) Family History Significant Family History: other (no cad) Social History Smoking Status: Never smoker Exam/Review of Systems Exam Vitals Vital Signs Date Temp Pulse Resp B/P (MAP) Pulse Ox O2 O2 Flow FiO2 Time Delivery Rate 03/06/19 75 12:59 03/06/19 179/91 12:39 (120) 03/06/19 98.6 20 95 Room Air 11:05 Intake and Output 03/05/19 03/05/19 03/06/19 1515:00 23:00 07:00 IntakeIntake Total 400 ml 1060 ml OutputOutput Total 2 ml 350 ml BalanceBalance 398 ml 710 ml Results Result Diagram: 03/06/19 0711 03/06/19 0711 Results 24hrs Laboratory Tests Test 03/06/19 03:30 03/06/19 07:11 03/06/19 07:12 Urine Color YELLOW Urine Clarity CLEAR Urine pH 6.0 Urine Specific [place] 1.021 Urine Ketones TRACE A Urine Nitrite NEGATIVE Urine Bilirubin NEGATIVE Urine Urobilinogen NEGATIVE Urine Leukocyte Esterase NEGATIVE Urine Microscopic RBC 16 H Urine Microscopic WBC 1 Urine Hemoglobin 2+ H Urine Glucose NEGATIVE Urine Total Protein NEGATIVE Urine Opiates Screen Negative Urine Barbiturates Negative Urine Amphetamines Screen Negative Urine Benzodiazepines Screen Negative Urine Cocaine Screen Negative Urine Cannabinoids Negative White Blood Count 8.0 Red Blood Count 3.78 L Hemoglobin 11.6 #L Hematocrit 35.9 L Mean Corpuscular Volume 95.0 Mean Corpuscular Hemoglobin 30.7 Mean Corpuscular Hemoglobin Concent 32.3 Red Cell Distribution Width 14.5 Platelet Count 263 # Mean Platelet Volume 8.6 Immature Granulocytes % 0.200 Neutrophils % 53.1 Lymphocytes % 34.2 Monocytes % 8.6 Eosinophils % 3.2 Basophils % 0.7 Nucleated Red Blood Cells % 0.0 Immature Granulocytes # 0.020 Neutrophils # 4.2 Lymphocytes # 2.7 Monocytes # 0.7 Eosinophils # 0.3 Basophils # 0.1 Nucleated Red Blood Cells # 0.0 Sodium Level 143 Potassium Level 3.7 Chloride Level 109 Carbon Dioxide Level 23 Anion Gap 11 Blood Urea Nitrogen 24 H Creatinine 0.89 Est Glomerular Filtrat Rate mL/min Glucose Level 119 Calcium Level 9.6 Phosphorus Level 3.3 Magnesium Level 2.2 Iron Level 92 Total Iron Binding Capacity 246 Percent Iron Saturation 37 Erythrocyte Sedimentation Rate 52 H Hemoglobin A1c 5.4 Ferritin 48.8 Prostate Specific Antigen 0.5 Vitamin B12 Level 275 Thyroid Stimulating Hormone (TSH) 2.890 Imaging Imaging mri/mra brain reviewed in emr Medications Medication Current Medications IV Flush (NS 3 ml) 3 ml PER PROTOCOL IV ; Start 03/05/19 at 13:00 Ondansetron HCl (Zofran Tab) 4 mg Q6H PRN PO NAUSEA/VOMITING; Start 03/05/19 at 13:00 Acetaminophen (Tylenol Tab) 650 mg Q6H PRN PO .PAIN 1-3 OR TEMP Last administered on 03/06/19 10:49; Admin Dose 650 MG; Start 03/05/19 at 13:00 Docusate Sodium (Colace) 100 mg Q12H PRN PO .CONSTIPATION; Start 03/05/19 at 13:00 Sodium Chloride 1,000 ml @ 50 mls/hr Q20H IV Last administered on 03/05/19 14:02; Admin Dose 50 MLS/HR; Start 03/05/19 at 13:00 Aspirin (Ecotrin) 325 mg DAILY PO Last administered on 03/06/19 08:19; Admin Dose 325 MG; Start 03/06/19 at 09:00 Atorvastatin Calcium (Lipitor) 10 mg HS PO Last administered on 03/05/19 20:24; Admin Dose 10 MG; Start 03/05/19 at 21:00 Metoprolol Succinate (Toprol Xl) 25 mg BID PO Last administered on 03/06/19 08:20; Admin Dose 25 MG; Start 03/05/19 at 21:00 Sulfasalazine (Azulfidine) 1,000 mg QID PO Last administered on 03/06/19 12:55; Admin Dose 1,000 MG; Start 03/05/19 at 13:00 Oxybutynin Chloride (Ditropan Xl) 10 mg DAILY PO Last administered on 03/06/19 08:19; Admin Dose 10 MG; Start 03/06/19 at 09:00 Pantoprazole (Protonix Tab) 40 mg DAILY@06 PO Last administered on 03/06/19 05:01; Admin Dose 40 MG; Start 03/06/19 at 06:00 Donepezil HCl (Aricept) 5 mg BID PO Last administered on 03/06/19 08:19; Admin Dose 5 MG; Start 03/05/19 at 21:00 Lorazepam (Ativan) 1 mg HS PRN PO SLEEP Last administered on 03/06/19 05:01; Admin Dose 1 MG; Start 03/05/19 at 20:30 Nifedipine (Procardia Xl) 30 mg BID PO Last administered on 03/06/19 10:49; Admin Dose 30 MG; Start 03/06/19 at 10:30 Clonidine (Catapres) 0.1 mg Q8 GTB Last administered on 03/06/19 13:45; Admin Dose 0.1 MG; Start 03/06/19 at 14:00 RAZIA IRWIN March 06, 2019 14:44
--- NOTE | 2019-03-06 15:54 | CONS ---
Assessment/Plan Assessment/Plan Hospital Course 84 yo M with hx of dementia and cerebrovascular risk factors who presents for evaluation of a transient R face/arm weakness... for which neurology is consulted. The clinical picture was most ominously concerning for TIA/Minor stroke. MRI brain confirmed an acute L frontal infarct. MRA H/N is notable for mild, generalized intracranial athero..a possible contributor.. Echo is notable for mild basal septum hypertrophy but is otherwise unrevealing. EKG is notable for multiple PVCs, prolonged NV and QTC intervals ESR 52, LDL 58, UA neg P: Await RPR Plavix 300mg x 1 dose now, followed by 75mg daily OK to cont ASA for secondary stroke prevention; LDL is at goal (< 70) Consider 30 day Holter monitoring as outpatient to observe for paroxysmal afib. [place] as necessary OK to continue Aricept/Namenda per ops PT/OT/ST as necessary Other management per primary Will follow clinically Consultation Date/Type/Reason Admit Date/Time March 04, 2019 at 23:23 Type of Consult Neurology Reason for Consultation R face/arm weakness Requesting Provider: JOSUE WADE MD Date/Time of Note DATE: 03/06/19 TIME: 15:54 24 HR Interval Summary Free Text/Dictation Continues acute care. S/p MRI/MRA. Pt states that his R hand weakness has returned. Exam Vital Signs Vitals Vital Signs Date Temp Pulse Resp B/P (MAP) Pulse Ox O2 O2 Flow FiO2 Time Delivery Rate 03/06/19 97.9 72 20 128/74 95 Room Air 15:38 (92) Intake and Output 03/05/19 03/05/19 03/06/19 1515:00 23:00 07:00 IntakeIntake Total 400 ml 1060 ml OutputOutput Total 2 ml 350 ml BalanceBalance 398 ml 710 ml Exam PE: Gen Appearance: No Apparent Distress HEENT: Normocephalic Cardiovascular: Regular rate Lungs: Clear bilaterally Abdomen: Soft Extremities: Dry NE: The patient was alert and oriented. Language was normal. Fund of knowledge was normal. Pupils were equal and reactive to light. There was no afferent pupillary defect. Visual pelayo were normal. Funduscopic examination was limited. Extra-ocular movements were full. Ptosis was absent. There was no nystagmus. Facial sensation was normal. Face was symmetric with normal strength. Hearing was intact. Palate movements were normal. Neck strength was normal. There was normal tongue bulk and speed of movement. Tone was normal. Muscle bulk was normal. I did not see fasciculations. Arms were strong to confrontation; R hand was weaker than the L. Legs were strong to confrontation, symmetrically. Vibration sensation was normal. Temperature and pinprick sensation was normal. Rapid alternating movements were normal. There was minor dysmetria in the RUE. There was no intention tremor. Gait was deferred due to bedrest. Arm and leg reflexes were 2+ and symmetric. Genao's sign was absent. Plantar responses were flexor. CASSANDRA FULLER NP March 06, 2019 15:54 JULIANNA ELLIOTT March 07, 2019 06:36
[2019-03-06] MEDS ORDERED: CLOPIDOGREL 75 MG TAB PO ONE (18:00)
[2019-03-06] MEDS: ATORVASTATIN 10 MG TAB PO SCH (20:38)
[2019-03-07] VITALS (12 sets, daily range): BP systolic 18–158; BP diastolic 64–96; PULSE 57–70; RESP 18–20
[2019-03-07] MEDS: PANTOPRAZOLE (EC) 40 MG TAB PO SCH (06:12)
--- NOTE | 2019-03-07 07:09 | CONS ---
DATE OF ADMISSION: 03/06/2019 DATE OF CONSULTATION: 03/06/2019 TYPE OF CONSULTATION: Vascular. REFERRING PHYSICIAN: Josue Wade MD REASON FOR CONSULTATION: Bilateral lower extremity evaluation and arterial evaluation of decreased p edal pulses. HISTORY OF PRESENT ILLNESS: This is an 84-year-old gentleman with hypertension and some chronic nati ntia, who was admitted with a stroke. Several days ago, he was eating and became discoordinated in h is right hand and had some facial droop. He has had some trouble swallowing mainly. He was brought in by family and he has had a fairly thorough evaluation. There is no carotid or either extracranial , intracranial stenosis, but he has had a small white matter infarct on the left side consistent with his symptoms. He is fairly lethargic at this point. His says he does wake up and talk to her at times but right now is very sleepy. He has had no complaint of pain in his feet. His and so n say he has a lot of trouble walking because of his back. He has chronic severe back problems and w hen he walks he kind of bends over, but he does not complain of pain in the feet or having had any wo unds on the feet. They were difficult to heal. PAST MEDICAL HISTORY: Significant for hypertension, stroke, progressive dementia, memory loss. MEDICATIONS: Consist of: 1. Ativan. 2. Aricept. 3. Protonix. 4. Sulfadiazine. 5. Metoprolol. 6. Atorvastatin. 7. Aspirin. 8. Colace. He also has Crohn's disease, that is why he is on the sulfadiazine. He has no history of coronary ar sony disease. Never had any coronary interventions. ALLERGIES: NO KNOWN DRUG ALLERGIES. SOCIAL HISTORY: He is a former smoker. He is a heavy smoker in his 30s, but he stopped many years a go. He is . He lives with his . He does not use alcohol or any illicit drugs. FAMILY HISTORY: Noncontributory. REVIEW OF SYSTEMS: Currently, he is somnolent. I cannot get him to wake up. His says he sleep s and then he will wake up and become conversant, but currently he is just sleeping. PAST SURGICAL HISTORY: Significant prostate cancer and some back problems. I do not think he has ev er had surgery, but has had chronic back problems. PHYSICAL EXAMINATION GENERAL: He is an elderly gentleman. He is somnolent. VITAL SIGNS: He has been afebrile. His blood pressure is 182/106, heart rate is 81, respiratory rat e is 20. He is 95% sat on room air. PERIPHERAL VASCULAR: He has 2+ carotid, radial and brachial pulses bilaterally. LUNGS: Clear. HEART: Regular rate and rhythm. ABDOMEN: Soft, nontender, nondistended. EXTREMITIES: He has 2+ femoral pulses bilaterally. On the left, I feel popliteal and DP pulses are 2+. On the right, I cannot feel popliteal, DP or PT pulse. His feet are both warm and pink. There is no discoloration, no ulcerations, no areas of gangrene. DIAGNOSTIC DATA: I reviewed the imaging of the head and neck vasculature. There is really no signif icant intra or extracranial carotid artery stenosis. He did have been done MRI again left-sided infa rct. He had lower extremity arterial duplex studies which show fairly low velocity flow in the tibia ls and some mildly decreased ABIs, monophasic flow in the left, although I can feel pulses quite well on the left but not on the right. IMPRESSION: Recent stroke is of unclear etiology. There does not appear to be any intra or extracra nial carotid disease. He likely embolized from the heart or from his atherosclerotic plaque. Ambrosio james is seeing him and they will recommend high dose statin and antiplatelets. 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 He is not ischemic. I can feel a good pulse on the left. I cannot feel pulses on the right and the arterial duplex just shows basically tibial disease bilaterally, something we can keep an eye on in the future, but no int erventions needed at this time. I discussed that with his and son and they understand that. I can see him back as an outpatient once he is recovered. Dictated By: DOMINICK ARIAS/JOCELYNN Conf#: [id number] DID#: [id number] CC: JOSUE WADE MD;*EndCC*
[2019-03-07] MEDS: SULFASALAZINE 500 MG TAB PO SCH ×4 (08:29→21:08)
[2019-03-07] MEDS: ASPIRIN (EC) 325 MG TAB PO SCH (08:30)
[2019-03-07] MEDS: OXYBUTYNIN (XL) 5 MG TAB PO SCH (08:30)
[2019-03-07] MEDS: DONEPEZIL 5 MG TAB PO SCH ×2 (08:31→21:07)
[2019-03-07] MEDS: NIFEdipine (XL) 30 MG TAB PO SCH ×2 (08:32→21:11)
[2019-03-07] MEDS: METOPROLOL (XL) 25 MG TAB PO SCH ×2 (08:32→21:00)
[2019-03-07] MEDS: CLOPIDOGREL 75 MG TAB PO SCH (08:35)
--- NOTE | 2019-03-07 08:40 | PN ---
Date/Time of Note Date/Time of Note DATE: 03/07/19 TIME: 08:38 Assessment/Plan VTE Prophylaxis Risk score (from Ns)>0 risk: 6 SCD applied (from Ns): Yes Pharmacological prophylaxis: LMWH Lines/Catheters [facility] Saline Lock Urinary Cath still in place: No Assessment/Plan Assessment/Plan 1. 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 BP now controlled 3. Neuro note rev, ? need for asa and plavix 4. Will start dvt prophy with lovenox 5. Requested rehab eval for vph 6. Cognitive dysfx, stable Result Diagram: 03/07/19 0746 03/06/19 0711 Results 24hrs Laboratory Tests Test 03/07/19 07:46 White Blood Count 7.5 Red Blood Count 3.66 L Hemoglobin 11.0 L Hematocrit 34.8 L Mean Corpuscular Volume 95.1 Mean Corpuscular Hemoglobin 30.1 Mean Corpuscular Hemoglobin Concent 31.6 L Red Cell Distribution Width 14.2 Platelet Count 249 Mean Platelet Volume 8.6 Immature Granulocytes % 0.300 Neutrophils % 44.9 Lymphocytes % 41.6 Monocytes % 9.1 Eosinophils % 3.3 Basophils % 0.8 Nucleated Red Blood Cells % 0.0 Immature Granulocytes # 0.020 Neutrophils # 3.4 Lymphocytes # 3.1 H Monocytes # 0.7 Eosinophils # 0.3 Basophils # 0.1 Nucleated Red Blood Cells # 0.0 Subjective 24 Hr Interval Summary Respiratory: No cough, No shortness of breath Cardiovascular: No chest pain Gastrointestinal: no complaints Genitourinary: no complaints Musculoskeletal: no complaints Neurologic: headache Exam/Review of Systems Exam Vitals Vital Signs Date Temp Pulse Resp B/P (MAP) Pulse Ox O2 O2 Flow FiO2 Time Delivery Rate 03/07/19 98.1 70 20 124/68 94 Room Air 07:25 (86) Intake and Output 03/06/19 03/06/19 03/07/19 1515:00 23:00 07:00 IntakeIntake Total 720 ml 650 ml OutputOutput Total 900 ml BalanceBalance -180 ml 650 ml Neck: No jvd Respiratory: clear to auscultation Gastrointestinal: soft 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: other (right hemipareisis) Results Results 24hrs Laboratory Tests Test 03/07/19 07:46 White Blood Count 7.5 Red Blood Count 3.66 L Hemoglobin 11.0 L Hematocrit 34.8 L Mean Corpuscular Volume 95.1 Mean Corpuscular Hemoglobin 30.1 Mean Corpuscular Hemoglobin Concent 31.6 L Red Cell Distribution Width 14.2 Platelet Count 249 Mean Platelet Volume 8.6 Immature Granulocytes % 0.300 Neutrophils % 44.9 Lymphocytes % 41.6 Monocytes % 9.1 Eosinophils % 3.3 Basophils % 0.8 Nucleated Red Blood Cells % 0.0 Immature Granulocytes # 0.020 Neutrophils # 3.4 Lymphocytes # 3.1 H Monocytes # 0.7 Eosinophils # 0.3 Basophils # 0.1 Nucleated Red Blood Cells # 0.0 Medications Medication Current Medications IV Flush (NS 3 ml) 3 ml PER PROTOCOL IV ; Start 03/05/19 at 13:00 Ondansetron HCl (Zofran Tab) 4 mg Q6H PRN PO NAUSEA/VOMITING; Start 03/05/19 at 13:00 Acetaminophen (Tylenol Tab) 650 mg Q6H PRN PO .PAIN 1-3 OR TEMP Last administered on 03/06/19at 10:49; Admin Dose 650 MG; Start 03/05/19 at 13:00 Docusate Sodium (Colace) 100 mg Q12H PRN PO .CONSTIPATION; Start 03/05/19 at 13:00 Aspirin (Ecotrin) 325 mg DAILY PO Last administered on 03/07/19 08:30; Admin Dose 325 MG; Start 03/06/19 at 09:00 Atorvastatin Calcium (Lipitor) 10 mg HS PO Last administered on 03/06/19 20:38; Admin Dose 10 MG; Start 03/05/19 at 21:00 Metoprolol Succinate (Toprol Xl) 25 mg BID PO Last administered on 03/06/19 08:20; Admin Dose 25 MG; Start 03/05/19 at 21:00 Sulfasalazine (Azulfidine) 1,000 mg QID PO Last administered on 03/07/19 08:29; Admin Dose 1,000 MG; Start 03/05/19 at 13:00 Oxybutynin Chloride (Ditropan Xl) 10 mg DAILY PO Last administered on 03/07/19 08:30; Admin Dose 10 MG; Start 03/06/19 at 09:00 Pantoprazole (Protonix Tab) 40 mg DAILY@06 PO Last administered on 03/07/19 06:12; Admin Dose 40 MG; Start 03/06/19 at 06:00 Donepezil HCl (Aricept) 5 mg BID PO Last administered on 03/07/19 08:31; Admin Dose 5 MG; Start 03/05/19 at 21:00 Lorazepam (Ativan) 1 mg HS PRN PO SLEEP Last administered on 03/06/19 05:01; Admin Dose 1 MG; Start 03/05/19 at 20:30 Nifedipine (Procardia Xl) 30 mg BID PO Last administered on 03/06/19at 20:38; Admin Dose 30 MG; Start 03/06/19 at 10:30 Clopidogrel Bisulfate (plaVIX) 75 mg DAILY PO Last administered on 03/07/19 08:35; Admin Dose 75 MG; Start 03/07/19 at 09:00 Clonidine (Catapres) 0.1 mg Q8 PO ; Start 03/06/19 at 22:00 JOSUE WADE MD March 07, 2019 08:40
[2019-03-07] MEDS: ENOXAPARIN 40 MG/0.4 ML SYG SC SCH (10:00)
--- NOTE | 2019-03-07 15:54 | CONS ---
Assessment/Plan Assessment/Plan Hospital Course 84 yo M with hx of dementia and cerebrovascular risk factors who presents for evaluation of a transient R face/arm weakness... for which neurology is consulted. The clinical picture was most ominously concerning for TIA/Minor stroke. MRI brain confirmed an acute L frontal infarct. MRA H/N is notable for mild, generalized intracranial athero..a possible contributor.. Echo is notable for mild basal septum hypertrophy but is otherwise unrevealing. EKG is notable for multiple PVCs, prolonged AR and QTC intervals ESR 52, LDL 58, UA neg P: Await RPR Cont ASA/Plavix for secondary stroke prevention. Transition to Plavix daily in 3 month; LDL is at goal (< 70) Consider 30 day Holter monitoring as outpatient to observe for paroxysmal afib. Gerton as necessary OK to continue Aricept/Namenda per ops PT/OT/ST as necessary Other management per primary Will follow clinically Consultation Date/Type/Reason Admit Date/Time March 06, 2019 at 15:51 Type of Consult Neurology Reason for Consultation R face/arm weakness Requesting Provider: JOSUE WADE MD Date/Time of Note DATE: 03/07/19 TIME: 15:54 24 HR Interval Summary Free Text/Dictation Continues acute care. Pt states that his hand is getting better. Is awaiting possible transfer to ARU. Exam Vital Signs Vitals Vital Signs Date Temp Pulse Resp B/P (MAP) Pulse Ox O2 O2 Flow FiO2 Time Delivery Rate 03/07/19 66 12:44 03/07/19 98.0 20 135/64 95 Room Air 11:30 (87) Intake and Output 03/06/19 03/06/19 03/07/19 1515:00 23:00 07:00 IntakeIntake Total 720 ml 650 ml OutputOutput Total 900 ml BalanceBalance -180 ml 650 ml CASSANDRA FULLER NP March 07, 2019 15:54
--- NOTE | 2019-03-07 16:36 | CONS ---
Assessment/Plan Assessment/Plan Hospital Course (Demo Recall) TIA/CVA- MRI with subacute abnl, CT shows old lacunar infarcts. symptoms resolve. neuro following. on asa/plavix now. cont statin. bp control. will need outpt follow up for skilled nursing monitor to r/o afib. (no afib on tele since admit) Consultation Date/Type/Reason Admit Date/Time March 06, 2019 at 15:51 Initial Consult Date 03/06/19 Type of Consult Cardiology Reason for Consultation CVA Requesting Provider: JOSUE WADE MD Date/Time of Note DATE: 03/07/19 TIME: 16:33 24 HR Interval Summary Free Text/Dictation no acute events. working with PT this am. still some residual R weakness. no palp, dizziness, sob Detailed Summary Eyes: no complaints ENT: no complaints Respiratory: no complaints Cardiovascular: no complaints Exam/Review of Systems Exam Vitals Vital Signs Date Temp Pulse Resp B/P (MAP) Pulse Ox O2 O2 Flow FiO2 Time Delivery Rate 03/07/19 63 16:22 03/07/19 97.6 20 158/81 96 Room Air 15:28 (106) Intake and Output 03/06/19 03/06/19 03/07/19 1515:00 23:00 07:00 IntakeIntake Total 720 ml 650 ml OutputOutput Total 900 ml BalanceBalance -180 ml 650 ml Constitutional: alert, oriented, well developed Psych: no complaints Head: normocephalic, atraumatic Eyes: nl conjunctiva ENMT: nl external ears & nose, nl nasal mucosa & septum Neck: supple, non-tender; No jvd Respiratory: clear to auscultation, normal air movement Cardiovascular: regular rate and rhythm, nl pulses, systolic murmur; No gallop, No irregular rhythm Gastrointestinal: soft, non-tender Musculoskeletal: nl extremities to inspection Extremities: normal pulses 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: 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, nl mental status, nl speech, other (mild decreased RUE strength) Results Result Diagram: 03/07/19 0746 03/07/19 0746 Results 24hrs Laboratory Tests Test 03/07/19 07:46 White Blood Count 7.5 Red Blood Count 3.66 L Hemoglobin 11.0 L Hematocrit 34.8 L Mean Corpuscular Volume 95.1 Mean Corpuscular Hemoglobin 30.1 Mean Corpuscular Hemoglobin Concent 31.6 L Red Cell Distribution Width 14.2 Platelet Count 249 Mean Platelet Volume 8.6 Immature Granulocytes % 0.300 Neutrophils % 44.9 Lymphocytes % 41.6 Monocytes % 9.1 Eosinophils % 3.3 Basophils % 0.8 Nucleated Red Blood Cells % 0.0 Immature Granulocytes # 0.020 Neutrophils # 3.4 Lymphocytes # 3.1 H Monocytes # 0.7 Eosinophils # 0.3 Basophils # 0.1 Nucleated Red Blood Cells # 0.0 Sodium Level 142 Potassium Level 3.7 Chloride Level 109 Carbon Dioxide Level 25 Anion Gap 8 Blood Urea Nitrogen 26 H Creatinine 0.92 Est Glomerular Filtrat Rate mL/min Glucose Level 118 Calcium Level 9.3 Phosphorus Level 3.3 Magnesium Level 2.2 Triglycerides Level 141 Cholesterol Level 132 LDL Cholesterol, Calculated 77 HDL Cholesterol 27 L Cholesterol/HDL Ratio 4.[address] scan report reviewed tele strips reviewed: NSR no events Medications Medication Current Medications IV Flush (NS 3 ml) 3 ml PER PROTOCOL IV ; Start 03/05/19 at 13:00 Ondansetron HCl (Zofran Tab) 4 mg Q6H PRN PO NAUSEA/VOMITING; Start 03/05/19 at 13:00 Acetaminophen (Tylenol Tab) 650 mg Q6H PRN PO .PAIN 1-3 OR TEMP Last administered on 03/06/19at 10:49; Admin Dose 650 MG; Start 03/05/19 at 13:00 Docusate Sodium (Colace) 100 mg Q12H PRN PO .CONSTIPATION; Start 03/05/19 at 13:00 Aspirin (Ecotrin) 325 mg DAILY PO Last administered on 03/07/19at 08:30; Admin Dose 325 MG; Start 03/06/19 at 09:00 Atorvastatin Calcium (Lipitor) 10 mg HS PO Last administered on 03/06/19at 20:38; Admin Dose 10 MG; Start 03/05/19 at 21:00 Metoprolol Succinate (Toprol Xl) 25 mg BID PO Last administered on 03/06/19 08:20; Admin Dose 25 MG; Start 03/05/19 at 21:00 Sulfasalazine (Azulfidine) 1,000 mg QID PO Last administered on 03/07/19 13:24; Admin Dose 1,000 MG; Start 03/05/19 at 13:00 Oxybutynin Chloride (Ditropan Xl) 10 mg DAILY PO Last administered on 03/07/19 08:30; Admin Dose 10 MG; Start 03/06/19 at 09:00 Pantoprazole (Protonix Tab) 40 mg DAILY@06 PO Last administered on 03/07/19at 06:12; Admin Dose 40 MG; Start 03/06/19 at 06:00 Donepezil HCl (Aricept) 5 mg BID PO Last administered on 03/07/19 08:31; Admin Dose 5 MG; Start 03/05/19 at 21:00 Lorazepam (Ativan) 1 mg HS PRN PO SLEEP Last administered on 03/06/19 05:01; Admin Dose 1 MG; Start 03/05/19 at 20:30 Nifedipine (Procardia Xl) 30 mg BID PO Last administered on 03/06/19at 20:38; Admin Dose 30 MG; Start 03/06/19 at 10:30 Clopidogrel Bisulfate (plaVIX) 75 mg DAILY PO Last administered on 03/07/19at 08:35; Admin Dose 75 MG; Start 03/07/19 at 09:00 Clonidine (Catapres) 0.1 mg Q8 PO ; Start 03/06/19 at 22:00 Enoxaparin Sodium (Lovenox) 40 mg DAILY SC Last administered on 03/07/19at 10:00; Admin Dose 40 MG; Start 03/07/19 at 09:00 RAZIA IRWIN March 07, 2019 16:36
[2019-03-07] MEDS: ATORVASTATIN 10 MG TAB PO SCH (21:07)
[2019-03-08] VITALS (13 sets, daily range): BP systolic 127–156; BP diastolic 65–84; PULSE 56–69; RESP 18–20
[2019-03-08] MEDS: PANTOPRAZOLE (EC) 40 MG TAB PO SCH (05:24)
--- NOTE | 2019-03-08 09:07 | PN ---
Date/Time of Note Date/Time of Note DATE: 03/08/19 TIME: 09:04 Assessment/Plan VTE Prophylaxis Risk score (from Ns)>0 risk: 6 SCD applied (from Ns): Yes Pharmacological prophylaxis: LMWH Lines/Catheters IV Catheter Type (from Nrsg): Saline Lock Urinary Cath still in place: No Assessment/Plan Assessment/Plan 1. 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 Stable for transfer to acute rehab 4. Cognitive impairment is stable 5. Rev ASA and rx with Plavix yesterday Result Diagram: 03/07/1974503/07/19 0746 Subjective 24 Hr Interval Summary Cardiovascular: No chest pain, No lightheadedness, No orthopenea Gastrointestinal: no complaints Genitourinary: no complaints Musculoskeletal: no complaints Neurologic: no complaints Exam/Review of Systems Exam Vitals Vital Signs Date Temp Pulse Resp B/P (MAP) Pulse Ox O2 O2 Flow FiO2 Time Delivery Rate 03/08/19 59 09:03 03/08/19 98.1 20 156/76 95 Room Air 07:38 (102) Intake and Output 03/07/19 03/07/19 03/08/19 1515:00 23:00 07:00 IntakeIntake Total 980 ml 250 ml BalanceBalance 980 ml 250 ml Neck: No jvd Respiratory: clear to auscultation Cardiovascular: regular rate and rhythm Gastrointestinal: soft 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: focal weakness (right hemipareisis, right facial) Medications Medication Current Medications IV Flush (NS 3 ml) 3 ml PER PROTOCOL IV ; Start 03/05/19 at 13:00 Ondansetron HCl (Zofran Tab) 4 mg Q6H PRN PO NAUSEA/VOMITING; Start 03/05/19 at 13:00 Acetaminophen (Tylenol Tab) 650 mg Q6H PRN PO .PAIN 1-3 OR TEMP Last administered on 03/06/19at 10:49; Admin Dose 650 MG; Start 03/05/19 at 13:00 Docusate Sodium (Colace) 100 mg Q12H PRN PO .CONSTIPATION; Start 03/05/19 at 13:00 Aspirin (Ecotrin) 325 mg DAILY PO Last administered on 03/07/19at 08:30; Admin Dose 325 MG; Start 03/06/19 at 09:00 Atorvastatin Calcium (Lipitor) 10 mg HS PO Last administered on 03/07/19 21:07; Admin Dose 10 MG; Start 03/05/19 at 21:00 Metoprolol Succinate (Toprol Xl) 25 mg BID PO Last administered on 03/06/19 08:20; Admin Dose 25 MG; Start 03/05/19 at 21:00 Sulfasalazine (Azulfidine) 1,000 mg QID PO Last administered on 03/07/19 21:08; Admin Dose 1,000 MG; Start 03/05/19 at 13:00 Oxybutynin Chloride (Ditropan Xl) 10 mg DAILY PO Last administered on 03/07/19 08:30; Admin Dose 10 MG; Start 03/06/19 at 09:00 Pantoprazole (Protonix Tab) 40 mg DAILY@06 PO Last administered on 03/08/19 05:24; Admin Dose 40 MG; Start 03/06/19 at 06:00 Donepezil HCl (Aricept) 5 mg BID PO Last administered on 03/07/19 21:07; Admin Dose 5 MG; Start 03/05/19 at 21:00 Lorazepam (Ativan) 1 mg HS PRN PO SLEEP Last administered on 03/06/19 05:01; Admin Dose 1 MG; Start 03/05/19 at 20:30 Nifedipine (Procardia Xl) 30 mg BID PO Last administered on 03/07/19 21:11; Admin Dose 30 MG; Start 03/06/19 at 10:30 Clopidogrel Bisulfate (plaVIX) 75 mg DAILY PO Last administered on 03/07/19 08:35; Admin Dose 75 MG; Start 03/07/19 at 09:00 Clonidine (Catapres) 0.1 mg Q8 PO ; Start 03/06/19 at 22:00 Enoxaparin Sodium (Lovenox) 40 mg DAILY SC Last administered on 03/07/19 10:00; Admin Dose 40 MG; Start 03/07/19 at 09:00 JOSUE WADE MD March 08, 2019 09:07
[2019-03-08] MEDS ORDERED: CLON0.1T14 PO (09:12)
[2019-03-08] MEDS ORDERED: METO-335 PO (09:12)
[2019-03-08] MEDS ORDERED: OXYB5TAB22 PO (09:12)
[2019-03-08] MEDS ORDERED: SULF500T PO (09:12)
[2019-03-08] MEDS ORDERED: ENOX40DI2 SC (09:12)
[2019-03-08] MEDS ORDERED: ONDA4TAB95 PO (09:12)
[2019-03-08] MEDS ORDERED: CLOP75TA28 PO (09:12)
[2019-03-08] MEDS ORDERED: DOCU-144 PO (09:12)
[2019-03-08] MEDS ORDERED: ATOR10TA65 PO (09:12)
[2019-03-08] MEDS ORDERED: ACET325T33 PO (09:12)
[2019-03-08] MEDS ORDERED: ASPI325T32 PO (09:12)
[2019-03-08] MEDS ORDERED: NIFE30TA2 PO (09:12)
[2019-03-08] MEDS ORDERED: DONE5TAB53 PO (09:12)
[2019-03-08] MEDS: SULFASALAZINE 500 MG TAB PO SCH ×4 (09:23→20:29)
[2019-03-08] MEDS: CLOPIDOGREL 75 MG TAB PO SCH (09:24)
[2019-03-08] MEDS: NIFEdipine (XL) 30 MG TAB PO SCH ×2 (09:24→20:42)
[2019-03-08] MEDS: DONEPEZIL 5 MG TAB PO SCH ×2 (09:24→20:27)
[2019-03-08] MEDS: METOPROLOL (XL) 25 MG TAB PO SCH ×2 (09:24→20:42)
[2019-03-08] MEDS: ASPIRIN (EC) 325 MG TAB PO SCH (09:24)
[2019-03-08] MEDS: OXYBUTYNIN (XL) 5 MG TAB PO SCH (09:25)
[2019-03-08] MEDS: ENOXAPARIN 40 MG/0.4 ML SYG SC SCH (09:26)
--- NOTE | 2019-03-08 16:41 | CONS ---
Assessment/Plan Assessment/Plan Hospital Course (Demo Recall) TIA/CVA- MRI with subacute abnl, CT shows old lacunar infarcts. symptoms resolve. neuro following. on asa/plavix now. cont statin. bp controledl. 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 (no afib on tele since admit) d/w family at bedside Consultation Date/Type/Reason Admit Date/Time March 06, 2019 at 15:51 Initial Consult Date 03/06/19 Type of Consult Cardiology Requesting Provider: JOSUE WADE MD Date/Time of Note DATE: 03/08/19 TIME: 16:40 24 HR Interval Summary Free Text/Dictation stable, no acute events. no cp/sob/palp tele reviewed: no events. sr with 1st degree avb. no afib +PVCs Constitutional: no complaints Detailed Summary Eyes: no complaints ENT: no complaints Respiratory: no complaints Exam/Review of Systems Exam Vitals Vital Signs Date Temp Pulse Resp B/P (MAP) Pulse Ox O2 O2 Flow FiO2 Time Delivery Rate 03/08/19 56 16:27 03/08/19 98.2 20 149/75 95 Room Air 15:17 (99) Intake and Output 03/07/19 03/07/19 03/08/19 1515:00 23:00 07:00 IntakeIntake Total 980 ml 250 ml BalanceBalance 980 ml 250 ml Exam Constitutional: alert, oriented, well developed Psych: no complaints Head: normocephalic, atraumatic Eyes: nl conjunctiva ENMT: nl external ears & nose, nl nasal mucosa & septum Neck: supple, non-tender; No jvd Respiratory: clear to auscultation, normal air movement Cardiovascular: regular rate and rhythm, nl pulses, systolic murmur; No gallop, No irregular rhythm Gastrointestinal: soft, non-tender Musculoskeletal: nl extremities to inspection Extremities: normal pulses 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: 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 MACHINE TENDER II-XII intact, nl mental status, nl speech, other (mild decreased RUE strength) Results Result Diagram: 03/07/19 0746 03/07/19 0746 Medications Medication Current Medications IV Flush (NS 3 ml) 3 ml PER PROTOCOL IV ; Start 03/05/19 at 13:00 Ondansetron HCl (Zofran Tab) 4 mg Q6H PRN PO NAUSEA/VOMITING; Start 03/05/19 at 13:00 Acetaminophen (Tylenol Tab) 650 mg Q6H PRN PO .PAIN 1-3 OR TEMP Last administered on 03/06/19 10:49; Admin Dose 650 MG; Start 03/05/19 at 13:00 Docusate Sodium (Colace) 100 mg Q12H PRN PO .CONSTIPATION; Start 03/05/19 at 13:00 Aspirin (Ecotrin) 325 mg DAILY PO Last administered on 03/08/19 09:24; Admin Dose 325 MG; Start 03/06/19 at 09:00 Atorvastatin Calcium (Lipitor) 10 mg HS PO Last administered on 03/07/19 21:07; Admin Dose 10 MG; Start 03/05/19 at 21:00 Metoprolol Succinate (Toprol Xl) 25 mg BID PO Last administered on 03/08/19 09:24; Admin Dose 25 MG; Start 03/05/19 at 21:00 Sulfasalazine (Azulfidine) 1,000 mg QID PO Last administered on 03/08/19 14:01; Admin Dose 1,000 MG; Start 03/05/19 at 13:00 Oxybutynin Chloride (Ditropan Xl) 10 mg DAILY PO Last administered on 03/08/19 09:25; Admin Dose 10 MG; Start 03/06/19 at 09:00 Pantoprazole (Protonix Tab) 40 mg DAILY@06 PO Last administered on 03/08/19 05:24; Admin Dose 40 MG; Start 03/06/19 at 06:00 Donepezil HCl (Aricept) 5 mg BID PO Last administered on 03/08/19 09:24; Admin Dose 5 MG; Start 03/05/19 at 21:00 Lorazepam (Ativan) 1 mg HS PRN PO SLEEP Last administered on 03/06/19 05:01; Admin Dose 1 MG; Start 03/05/19 at 20:30 Nifedipine (Procardia Xl) 30 mg BID PO Last administered on 03/08/19 09:24; Admin Dose 30 MG; Start 03/06/19 at 10:30 Clopidogrel Bisulfate (plaVIX) 75 mg DAILY PO Last administered on 03/08/19 09:24; Admin Dose 75 MG; Start 03/07/19 at 09:00 Clonidine (Catapres) 0.1 mg Q8 PO ; Start 03/06/19 at 22:00 Enoxaparin Sodium (Lovenox) 40 mg DAILY SC Last administered on 03/08/19at 09:26; Admin Dose 40 MG; Start 03/07/19 at 09:00 RAZIA IRWIN March 08, 2019 16:41
--- NOTE | 2019-03-08 16:57 | CONS ---
Assessment/Plan Assessment/Plan Hospital Course 84 yo M with hx of dementia and cerebrovascular risk factors who presents for evaluation of a transient R face/arm weakness... for which neurology is consulted. The clinical picture was most ominously concerning for TIA/Minor stroke. MRI brain confirmed an acute L frontal infarct. MRA H/N is notable for mild, generalized intracranial athero..a possible contributor.. Echo is notable for mild basal septum hypertrophy but is otherwise unrevealing. EKG is notable for multiple PVCs, prolonged NM and QTC intervals ESR 52, LDL 58, UA neg, RPR neg P: Cont ASA/Plavix for secondary stroke prevention. Transition to Plavix daily in 3 month; LDL is at goal (< 70) Consider 30 day Holter monitoring as outpatient to observe for paroxysmal afib. Morgan as necessary OK to continue Aricept/Namenda per ops PT/OT/ST as necessary Other management per primary Will follow clinically Consultation Date/Type/Reason Admit Date/Time March 06, 2019 at 15:51 Type of Consult Neurology Reason for Consultation R face/arm weakness Requesting Provider: JOSUE WADE MD Date/Time of Note DATE: 03/08/19 TIME: 16:56 24 HR Interval Summary Free Text/Dictation Continues acute care. Exam Vital Signs Vitals Vital Signs Date Temp Pulse Resp B/P (MAP) Pulse Ox O2 O2 Flow FiO2 Time Delivery Rate 03/08/19 56 16:27 03/08/19 98.2 20 149/75 95 Room Air 15:17 (99) Intake and Output 03/07/19 03/07/19 03/08/19 1515:00 23:00 07:00 IntakeIntake Total 980 ml 250 ml BalanceBalance 980 ml 250 ml Exam PE: Gen Appearance: No Apparent Distress HEENT: Normocephalic Cardiovascular: Regular rate Lungs: Clear bilaterally Abdomen: Soft Extremities: Dry NE: The patient was alert and oriented. Language was normal. Fund of knowledge was normal. Pupils were equal and reactive to light. There was no afferent pupillary defect. Visual pelayo were normal. Funduscopic examination was limited. Extra-ocular movements were full. Ptosis was absent. There was no nystagmus. Facial sensation was normal. Face was symmetric with normal strength. Hearing was intact. Palate movements were normal. Neck strength was normal. There was normal tongue bulk and speed of movement. Tone was normal. Muscle bulk was normal. I did not see fasciculations. Arms were strong to confrontation; R hand was mildly weak; legs were strong Vibration sensation was normal. Temperature and pinprick sensation was normal. Rapid alternating movements were normal. There was no dysmetria. There was no intention tremor. Gait was deferred due to bedrest. Arm and leg reflexes were 2+ and symmetric. Genao's sign was absent. Plantar responses were flexor. CASSANDRA FULLER NP March 08, 2019 16:57
[2019-03-08] MEDS: ATORVASTATIN 10 MG TAB PO SCH (20:30)
--- NOTE | 2019-03-13 19:44 | DS ---
DATE OF ADMISSION: 03/06/2019 DATE OF DISCHARGE: 03/08/2019 HISTORY OF PRESENT ILLNESS: This is an 84-year-old male admitted with weakness of the right side of his face and upper extremity 8 hours prior to admission. PHYSICAL EXAMINATION: VITAL SIGNS: Unrevealing. NEUROLOGIC: He had no neurological deficit during his initial examination. LABORATORY AND DIAGNOSTIC STUDIES: Hematocrit 31.2 on 03/04/2019, 34.8 on 03/07/2019. White count r emained normal as did platelet count. Sed rate was 52. Chemistries are unrevealing. LDL cholestero l was 77. TSH was normal. B12 was normal. PSA was 0.5. Pro time and PTT were normal. Drug screen was unrevealing. Urine 2+ blood. RPR was nonreactive. IMAGING STUDIES: Included a neck CTA and head CTA which revealed no critical occlusion of his extrac ranial and intracranial circulation. Brain MRI revealed a 15 mm recent white matter infarct involvin g the left precentral gyrus. Brain MRI and MRA revealed normal imaging of the brain, atherosclerotic changes of the intracranial circulation without occlusion. Modified barium swallow revealed no evid ence of aspiration. HOSPITAL COURSE: The patient's blood pressure was monitored and antihypertensive therapy was initiat ed to maintain normotension. He was seen in neurology consultation who recommended the both aspirin and Plavix. Both of these to be continued for 3 months and then aspirin discontinued. He was seen b y physical therapy and occupational therapy with respect to progressive ambulation. He was seen in c ardiology consultation by Dr. Cadet, who felt no other intervention needed. Echocardiography reve aled no vegetation. PA systolic pressure was 30. At the time of discharge, he was stable and only minimally ambulating. DISCHARGE DIAGNOSES: 1. Left cerebral infarct with hemiparesis, mild. 2. Hypertension, controlled. 3. 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 4. Known Crohn's disease, quiescent on sulfasalazine. PLAN: To be transferred to acute rehabilitation. DIET: No added salt diet. MEDICATIONS: Include: 1. Tylenol p.r.n. 2. Aspirin 325 per day. 3. Atorvastatin 10 mg per day. 4. Clonidine 0.1 per day. 5. Plavix 75 mg per day. 6. Aricept 5 mg b.i.d. 7. Lovenox 40 mg per day. 8. Toprol-XL 25 b.i.d. 9. Nifedipine 30 b.i.d. 10. Oxybutynin 10 mg per day. 11. Azulfidine 1000 mg q.i.d. Dictated By: JOSUE LYNCH/JOCELYNN Conf#: [id number] DID#: [id number]
== END 2019-03-08 22:05 | DRG 65 ==
LOC: E/R 22:09 → MS3 23:23 → TEL 03-05 19:15 → OBSVTOIN 03-06 15:51
PROVIDERS: ADMIT Internal Medicine; ATTEND Internal Medicine
DX: I63.9 Cerebral infarction, unspecified (principal); G45.9 Transient cerebral ischemic attack, unspecified; G81.91 Hemiplegia, unspecified affecting right dominant side; C92.01 Acute myeloblastic leukemia, in remission; K50.90 Crohn's disease, unspecified, without complications; E78.5 Hyperlipidemia, unspecified; F02.80 Dementia in other diseases classified elsewhere, unspecified severity, without behavioral disturbance, psychotic disturbance, mood disturbance, and anxiety; I10 Essential (primary) hypertension; R27.8 Other lack of coordination; Z85.46 Personal history of malignant neoplasm of prostate; Z87.891 Personal history of nicotine dependence
CPT/HCPCS: 36415; 70450; 70496; 70498; 70544; 70551; 71045; 74230; 80048; 80053; 80061; 80307; 81001; 82550; 82553; 82607; 82728; 83036; 83540; 83735; 84100; 84153; 84154; 84443; 84484; 85025; 85610; 85651; 85730; 86592; 92610; 92611; 93005; 93306; 93922; 97116; 97162; 97530; 99217; G0378; J0360; J1650; J7030; Q9967

== ENCOUNTER 2019-03-08 12:19 | Inpatient (IN) | payer MEDICARE, BC ==
[~2019-03-08] VITALS: Ht 172.7 cm; Wt 68.0 kg
[~2019-03-08 12:19] MED LIST changes: -ACET-141 PO; +ACET325T33 PO; +ASPI325T32 PO; +ATOR10TA65 PO; +CLON0.1T14 PO; +CLOP75TA28 PO; +DONE5TAB53 PO; +ENOX40DI2 SC; -HYDR-3498 PO; -MECL12.574 PO; +MEMA5TAB PO; +METO-335 PO; +NIFE30TA2 PO; -ONDA4TAB14 PO; +ONDA4TAB95 PO; -OXYB10TA6 PO; +OXYB5TAB22 PO; +SULF500T PO; -SULF500T5 PO
[2019-03-08 22:30] VITALS: Ht 172.7 cm; Wt 68.0 kg
[2019-03-08] MEDS ORDERED: BISACODYL 10 MG SUPP PR PRN (23:30)
[2019-03-08] MEDS ORDERED: LACTULOSE 30ML CUP PO PRN (23:30)
[2019-03-08] MEDS ORDERED: MAGNESIUM HYDROXIDE 30ML CUP PO PRN (23:30)
[2019-03-08] MEDS ORDERED: ONDANSETRON 4 MG TAB PO PRN (23:45)
[2019-03-08] MEDS ORDERED: ACETAMINOPHEN 325 MG TAB PO PRN (23:45)
[2019-03-08] MEDS ORDERED: DOCUSATE SODIUM 100 MG CAP PO PRN (23:45)
[2019-03-09 00:20] VITALS: BP 174/91
[2019-03-09 02:00] VITALS: BP 160/77; PULSE 68; RESP 18
[2019-03-09] MEDS: PANTOPRAZOLE (EC) 40 MG TAB PO SCH (05:39)
[2019-03-09 07:00] VITALS: BP 129/77; PULSE 60; RESP 18
[2019-03-09] MEDS: CLOPIDOGREL 75 MG TAB PO SCH (09:34)
[2019-03-09] MEDS: METOPROLOL (XL) 25 MG TAB PO SCH ×2 (09:34→20:34)
[2019-03-09] MEDS: OXYBUTYNIN (XL) 5 MG TAB PO SCH (09:35)
[2019-03-09] MEDS: ASPIRIN (EC) 325 MG TAB PO SCH (09:35)
[2019-03-09] MEDS: NIFEdipine (XL) 30 MG TAB PO SCH ×2 (09:35→20:33)
[2019-03-09] MEDS: DONEPEZIL 5 MG TAB PO SCH ×2 (09:36→20:34)
[2019-03-09] MEDS: SULFADIAZINE 500 MG TAB PO SCH ×4 (09:36→20:34)
[2019-03-09] MEDS: ENOXAPARIN 40 MG/0.4 ML SYG SC SCH (09:43)
--- NOTE | 2019-03-09 10:02 | PN ---
Date/Time of Note Date/Time of Note DATE: 03/09/19 TIME: 09:59 Assessment/Plan VTE Prophylaxis SCD applied (from Nsg): Yes Pharmacological prophylaxis: LMWH Lines/Catheters IV Catheter Type (from Nrsg): Saline Lock Urinary Cath still in place: No Assessment/Plan Hospital Course Mr. 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 Pt evaluated by Neurology, no further workup recommended. 1. Continue ASA 325mg PO qday, Plavix 75mg PO qday. 2. BP stable on Nifedipine 30mg PO qday, Metoprolol PO bid. 3. PT/OT 4. Hx of Dementia on Donepezil 5mg PO bid Result Diagram: 03/09/1970203/09/19 0703 Results 24hrs Laboratory Tests Test 03/09/19 07:03 White Blood Count 5.5 # Red Blood Count 3.56 L Hemoglobin 10.6 L Hematocrit 33.7 L Mean Corpuscular Volume 94.7 Mean Corpuscular Hemoglobin 29.8 Mean Corpuscular Hemoglobin Concent 31.5 L Red Cell Distribution Width 13.9 Platelet Count 241 Mean Platelet Volume 8.8 Immature Granulocytes % 0.400 Neutrophils % 42.8 Lymphocytes % 40.1 Monocytes % 11.1 H Eosinophils % 4.5 Basophils % 1.1 Nucleated Red Blood Cells % 0.0 Immature Granulocytes # 0.020 Neutrophils # 2.4 Lymphocytes # 2.2 Monocytes # 0.6 Eosinophils # 0.3 Basophils # 0.1 Nucleated Red Blood Cells # 0.0 Sodium Level 142 Potassium Level 3.9 Chloride Level 108 Carbon Dioxide Level 26 Anion Gap 8 Blood Urea Nitrogen 22 H Creatinine 1.04 Est Glomerular Filtrat Rate mL/min Glucose Level 117 Calcium Level 9.2 Total Bilirubin 0.3 Direct Bilirubin 0.30 H Indirect Bilirubin 0.0 Aspartate Amino Transf (AST/SGOT) 28 Alanine Aminotransferase (ALT/SGPT) 32 Alkaline Phosphatase 106 Total Protein 7.3 Albumin 3.6 Globulin 3.70 H Albumin/Globulin Ratio 0.97 Subjective 24 Hr Interval Summary Free Text/Dictation Pt transferred to Acute Rehab, no overnight events. No AM complaints. Exam/Review of Systems Exam Vitals Vital Signs Date Temp Pulse Resp B/P (MAP) Pulse Ox O2 O2 Flow FiO2 Time Delivery Rate 03/09/19 98.3 60 18 129/77 98 Room Air 07:00 (94) Intake and Output 03/08/19 03/08/19 03/09/19 1515:00 23:00 07:00 IntakeIntake Total 600 ml BalanceBalance 600 ml Exam General: Well appearing CV: Regular rate and rythm Pulm: Clear to auscultation bilaterally Extrem; No lower extremity edema Neuro: CN II-XII grossly intact, AO x 3, mild R sided weakness noted Results Results 24hrs Laboratory Tests Test 03/09/19 07:03 White Blood Count 5.5 # Red Blood Count 3.56 L Hemoglobin 10.6 L Hematocrit 33.7 L Mean Corpuscular Volume 94.7 Mean Corpuscular Hemoglobin 29.8 Mean Corpuscular Hemoglobin Concent 31.5 L Red Cell Distribution Width 13.9 Platelet Count 241 Mean Platelet Volume 8.8 Immature Granulocytes % 0.400 Neutrophils % 42.8 Lymphocytes % 40.1 Monocytes % 11.1 H Eosinophils % 4.5 Basophils % 1.1 Nucleated Red Blood Cells % 0.0 Immature Granulocytes # 0.020 Neutrophils # 2.4 Lymphocytes # 2.2 Monocytes # 0.6 Eosinophils # 0.3 Basophils # 0.1 Nucleated Red Blood Cells # 0.0 Sodium Level 142 Potassium Level 3.9 Chloride Level 108 Carbon Dioxide Level 26 Anion Gap 8 Blood Urea Nitrogen 22 H Creatinine 1.04 Est Glomerular Filtrat Rate mL/min Glucose Level 117 Calcium Level 9.2 Total Bilirubin 0.3 Direct Bilirubin 0.30 H Indirect Bilirubin 0.0 Aspartate Amino Transf (AST/SGOT) 28 Alanine Aminotransferase (ALT/SGPT) 32 Alkaline Phosphatase 106 Total Protein 7.3 Albumin 3.6 Globulin 3.70 H Albumin/Globulin Ratio 0.97 Medications Medication Current Medications Magnesium Hydroxide (Milk Of Mag) 30 ml BID PRN PO CONSTIPATION; Start 03/08/19 at 23:30 Lactulose (Enulose) 20 gm DAILY PRN PO CONSTIPATION; Start 03/08/19 at 23:30 Bisacodyl (Dulcolax Supp) 10 mg DAILY PRN [place] CONSTIPATION; Start 03/08/19 at 23:30 Ondansetron HCl (Zofran Tab) 4 mg Q6H PRN PO NAUSEA AND/OR VOMITING; Start 03/08/19 at 23:45 Oxybutynin Chloride (Ditropan Xl) 10 mg DAILY PO Last administered on 03/09/19 09:35; Admin Dose 10 MG; Start 03/09/19 at 09:00 Pantoprazole (Protonix Tab) 40 mg DAILY@06 PO Last administered on 03/09/19 05:39; Admin Dose 40 MG; Start 03/09/19 at 06:00 Sulfadiazine (Sulfadiazine) 1,000 mg QID PO Last administered on 03/09/19 09:36; Admin Dose 1,000 MG; Start 03/09/19 at 09:00 Donepezil HCl (Aricept) 5 mg BID PO Last administered on 03/09/19 09:36; Admin Dose 5 MG; Start 03/09/19 at 09:00 Enoxaparin Sodium (Lovenox) 40 mg DAILY SC Last administered on 03/09/19 09:43; Admin Dose 40 MG; Start 03/09/19 at 09:00 Lorazepam (Ativan) 1 mg HS PRN PO INSOMNIA; Start 03/08/19 at 23:45 Metoprolol Succinate (Toprol Xl) 25 mg BID PO Last administered on 03/09/19 09:34; Admin Dose 25 MG; Start 03/09/19 at 09:00 Nifedipine (Procardia Xl) 30 mg BID PO Last administered on 03/09/19 09:35; Admin Dose 30 MG; Start 03/09/19 at 09:00 Acetaminophen (Tylenol Tab) 650 mg Q6H PRN PO MILD PAIN(1-3)OR ELEVATED TEMP; Start 03/08/19 at 23:45 Aspirin (Ecotrin) 325 mg DAILY PO Last administered on 03/09/19 09:35; Admin Dose 325 MG; Start 03/09/19 at 09:00 Atorvastatin Calcium (Lipitor) 10 mg DAILY@21 PO ; Start 03/09/19 at 21:00 Clonidine (Catapres) 0.1 mg Q8 PO Last administered on 03/09/19 05:41; Admin Dose 0.1 MG; Start 03/08/19 at 23:30 Clopidogrel Bisulfate (plaVIX) 75 mg DAILY PO Last administered on 03/09/19 09:34; Admin Dose 75 MG; Start 03/09/19 at 09:00 Docusate Sodium (Colace) 100 mg Q12H PRN PO CONSTIPATION; Start 03/08/19 at 23:45 LUIS ALFREDO HERRERA MD March 09, 2019 10:02
[2019-03-09 14:00] VITALS: BP 154/73; PULSE 61; RESP 18
[2019-03-09 19:43] VITALS: BP 110/68; PULSE 66; RESP 18
[2019-03-09] MEDS: ATORVASTATIN 10 MG TAB PO SCH (20:34)
[2019-03-10 02:00] VITALS: BP 128/72; PULSE 64; RESP 18
[2019-03-10] MEDS: PANTOPRAZOLE (EC) 40 MG TAB PO SCH (06:30)
[2019-03-10 07:00] VITALS: BP 146/69; PULSE 58; RESP 18
[2019-03-10] MEDS: SULFADIAZINE 500 MG TAB PO SCH ×4 (08:39→21:05)
[2019-03-10] MEDS: OXYBUTYNIN (XL) 5 MG TAB PO SCH (08:40)
[2019-03-10] MEDS: ASPIRIN (EC) 325 MG TAB PO SCH (08:40)
[2019-03-10] MEDS: CLOPIDOGREL 75 MG TAB PO SCH (08:40)
[2019-03-10] MEDS: METOPROLOL (XL) 25 MG TAB PO SCH ×2 (08:44→21:12)
[2019-03-10] MEDS: NIFEdipine (XL) 30 MG TAB PO SCH ×2 (08:45→21:11)
[2019-03-10] MEDS: DONEPEZIL 5 MG TAB PO SCH ×2 (08:45→21:08)
[2019-03-10] MEDS: ENOXAPARIN 40 MG/0.4 ML SYG SC SCH (08:51)
--- NOTE | 2019-03-10 10:46 | PN ---
Date/Time of Note Date/Time of Note DATE: 03/10/19 TIME: 10:44 Assessment/Plan VTE Prophylaxis Risk score (from Ns)>0 risk: 6 [place] [facility] [place] contraindicated: low risk/ambulating Pharmacological prophylaxis: NA/contraindicated Pharm contraindication: low risk/ambulating Lines/Catheters [facility] Type [facility] Saline Lock Urinary Cath still in place: No Assessment/Plan Hospital Course Mr. 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 Pt evaluated by Neurology, no further workup recommended. 1. Continue ASA 325mg PO qday, Plavix 75mg PO qday. 2. BP stable on Nifedipine 30mg PO qday, Metoprolol PO bid. 3. PT/OT to start more aggressively on Monday 4. Hx of Dementia on Donepezil 5mg PO bid Result Diagram: 03/09/1970203/09/19702 Subjective 24 Hr Interval Summary Free Text/Dictation No overnight events. No AM complaints. States he is eager to start Rehab. Family at bedside for holiday. Exam/Review of Systems Exam Vitals Vital Signs Date Temp Pulse Resp B/P (MAP) Pulse Ox O2 O2 Flow FiO2 Time Delivery Rate 03/10/19 97.9 58 18 146/69 92 Room Air 07:00 (94) Intake and Output 03/09/19 03/09/19 03/10/19 1515:00 23:00 07:00 IntakeIntake Total 700 ml 300 ml OutputOutput Total 200 ml BalanceBalance 700 ml 100 ml Exam General: Well appearing, lying in bed. CV: Regular rate and rhythm Pulm: CTAB GI : +BS, soft, NT/ND Neuro: CN II-XII grossly intact, AO x 3 Medications Medication Current Medications Magnesium Hydroxide (Milk Of Mag) 30 ml BID PRN PO CONSTIPATION; Start 03/08/19 at 23:30 Lactulose (Enulose) 20 gm DAILY PRN PO CONSTIPATION Last administered on at 16:49; Admin Dose 20 GM; Start 03/08/19 at 23:30 Bisacodyl (Dulcolax Supp) 10 mg DAILY PRN [place] CONSTIPATION; Start 03/08/19 at 23:30 Ondansetron HCl (Zofran Tab) 4 mg Q6H PRN PO NAUSEA AND/OR VOMITING; Start 03/08/19 at 23:45 Oxybutynin Chloride (Ditropan Xl) 10 mg DAILY PO Last administered on 03/10/19 08:40; Admin Dose 10 MG; Start 03/09/19 at 09:00 Pantoprazole (Protonix Tab) 40 mg DAILY@06 PO Last administered on 03/10/19 06:30; Admin Dose 40 MG; Start 03/09/19 at 06:00 Sulfadiazine (Sulfadiazine) 1,000 mg QID PO Last administered on 03/10/19 08:39; Admin Dose 1,000 MG; Start 03/09/19 at 09:00 Donepezil HCl (Aricept) 5 mg BID PO Last administered on 03/10/19 08:45; Admin Dose 5 MG; Start 03/09/19 at 09:00 Enoxaparin Sodium (Lovenox) 40 mg DAILY SC Last administered on 03/10/19 08:51; Admin Dose 40 MG; Start 03/09/19 at 09:00 Lorazepam (Ativan) 1 mg HS PRN PO INSOMNIA; Start 03/08/19 at 23:45 Metoprolol Succinate (Toprol Xl) 25 mg BID PO Last administered on 03/09/19 20:34; Admin Dose 25 MG; Start 03/09/19 at 09:00 Nifedipine (Procardia Xl) 30 mg BID PO Last administered on 03/10/19 08:45; Admin Dose 30 MG; Start 03/09/19 at 09:00 Acetaminophen (Tylenol Tab) 650 mg Q6H PRN PO MILD PAIN(1-3)OR ELEVATED TEMP; Start 03/08/19 at 23:45 Aspirin (Ecotrin) 325 mg DAILY PO Last administered on 03/10/19 08:40; Admin Dose 325 MG; Start 03/09/19 at 09:00 Atorvastatin Calcium (Lipitor) 10 mg DAILY@21 PO Last administered on 03/09/19 20:34; Admin Dose 10 MG; Start 03/09/19 at 21:00 Clonidine (Catapres) 0.1 mg Q8 PO Last administered on 5/12/19at 06:30; Admin Dose 0.1 MG; Start 03/08/19 at 23:30 Clopidogrel Bisulfate (plaVIX) 75 mg DAILY PO Last administered on 03/10/19at 08:40; Admin Dose 75 MG; Start 03/09/19 at 09:00 Docusate Sodium (Colace) 100 mg Q12H PRN PO CONSTIPATION; Start 03/08/19 at 23:45 LUIS ALFREDO HERRERA MD March 10, 2019 10:46
[2019-03-10 14:00] VITALS: BP 137/60; PULSE 60; RESP 18
[2019-03-10 20:00] VITALS: BP 174/82; PULSE 63; RESP 18
[2019-03-10] MEDS: ATORVASTATIN 10 MG TAB PO SCH (21:05)
[2019-03-11 02:08] VITALS: BP 132/69; PULSE 70; RESP 18
[2019-03-11] MEDS: PANTOPRAZOLE (EC) 40 MG TAB PO SCH (06:32)
--- NOTE | 2019-03-11 07:25 | HP ---
DATE OF ADMISSION: 03/08/2019 REFERRING PHYSICIAN: Dr. Wade. CONSULTANTS: Dr. Guillaume, neurology, Dr. Barnett, cardiology. CHIEF COMPLAINT: Right-sided weakness, difficulty walking. HISTORY OF PRESENT ILLNESS: This patient is a very pleasant 84-year-old right-handed male with histo ry of hypertension, Crohn's colitis, prostate carcinoma, who presented to [facility] on 03/06/2019 with some right-sided weakness, decline in his functional skills. Some dysarthria. The patient had an MRI of the brain showing an acute left frontal acute infarct, seen by neurology. Currently on Plavix and aspirin for stroke prophylaxis. Other issues during this admission included some dysarthria and mild dysphagia. Labile hypertension, being followed by Dr. Wade of [facility]. The patient also had a CTA done showing diffuse cerebrovascular disease. The patient was co mpletely independent prior to recent admission, initiated on out of bed activities on the medical/bree gical unit and found to have a significant decline in his functional skills, evaluated for acute reha b, deemed an appropriate candidate, meeting all CMS guidelines. FUNCTIONAL HISTORY: Prior to recent events, he was independent with all mobility, ADLs, was using a single-point cane for gait activities. PAST MEDICAL HISTORY: Mild dementia, hypertension, Crohn's colitis, prostate carcinoma. CURRENT MEDICATIONS: 1. Lipitor. 2. Ditropan. 3. Sulfadiazine. 4. Aricept. 5. Lovenox. 6. Toprol. 7. Procardia. 8. Ecotrin. 9. Plavix. 10. Protonix. 11. Zofran p.r.n. 12. Ativan p.r.n. 13. Tylenol p.r.n. 14. Colace p.r.n. 15. Catapres p.r.n. SOCIAL HISTORY: The patient lives with his in a single-level residence without stairs. Plan is return back to the residence. REVIEW OF SYSTEMS: CARDIOVASCULAR: Denies chest pain, palpitations. PULMONARY: Denies shortness of breath, cough. MUSCULOSKELETAL: He has arthralgias in bilateral shoulders, hips, knees. GASTROINTESTINAL: Denies constipation, diarrhea. GENITOURINARY: Denies dysuria or frequency. NEUROLOGICAL: Presence of mild plaque right-sided weakness. FAMILY HISTORY: Noncontributory. PHYSICAL EXAMINATION: VITAL SIGNS: Temperature is 98.2, blood pressure 160/77, respirations 20, pulse is 68. LUNGS: Clear to auscultation bilaterally. COR: Distant heart sounds. No murmurs, rubs, or gallops. ABDOMEN: Soft, nontender. EXTREMITIES: No clubbing, cyanosis, edema. Homans test is negative. NEUROLOGIC: Cranial nerves II through XII, he has moderate central facial droop. He has some mild d ysarthria. Motor strength right upper and lower extremity strength 4/5, left upper and lower extremity strength 4+ to 5-/5. Dynamic balance is fair minus. He is alert and oriented x2. He has some slow processing. CURRENT FUNCTIONAL LEVEL: Upper extremity dressing, minimal assistance lower extremity dressing, moderate assistance for transf ers, minimal assistance. Gait steady. Minimal assistance for front-wheel walker. Lab results. Pending today. REHABILITATION IMPAIRMENT CATEGORY: Stroke. ETIOLOGIC DIAGNOSIS: Left cerebrovascular accident/ischemic infarct involving the left frontal lobe in right handed patient. MEDICAL AND REHABILITATION COMORBIDITIES: 1. Left cerebrovascular accident. 2. Dysarthria. 3. Oropharyngeal dysphagia. 4. Hypertension. 5. Crohn's colitis. 6. Anemia. 7. Prostate carcinoma. 8. Osteoarthritis. 9. Prerenal azotemia. FUNCTIONAL DEFICITS: 1. Impaired mobility including bed mobility, transfers, sitting balance, standing balance, endurance , strength, gait, stairs. 2. Impaired ADLs including self-care activities, bathing, dressing, grooming, hygiene, toileting. 3. Impaired bowel and bladder status. 4. Impaired functional endurance, strength and safety. POTENTIAL REHABILITATION AND MEDICAL COMPLICATIONS: 1. Extension of stroke. 2. Hypertension. 3. Postural hypertension. 4. Labile hypertension. 5. Urinary retention. 6. Urosepsis. 7. Falls. FUNCTIONAL BARRIERS TO DISCHARGE: 1. Impaired mobility. 2. Impaired ADLs. 3. Impaired safety. 4. Impaired communication. 5. Impaired swallow. RECOMMENDATIONS AND DISCUSSION: This patient has had a significant decline in his functional skills status post acute left CVA. He does indeed meet acute inpatient rehabilitation criteria including ab le to tolerate 3 hours of therapy a day, 5 days per week with a reasonable prognosis for significant functional recovery in a reasonable time frame. Given the patient's global functional deficits, he r equires the intensity of an acute rehabilitation program to optimize his function, decrease his lengt h of stay and increase likelihood of returning home. Also given the patient's multiple medical co-mo rbidities, he is at risk for medical complications outlined above. Given my opinion as a board-certi fied physical medicine rehabilitation therapy aide, it is reasonable and necessary for this patient's r ehabilitation procedures to be performed on an acute rehabilitation unit for daily physician oversigh t, management and care. These needs cannot be met safely at a lower level of care such an extended formerly [facility] facility. This patient will benefit from interdisciplinary coronary rehabilitation program here at [facility] under the care of supervision, direction, and daily oversight by pj nobles-certified physical medicine rehabilitation therapy aide for the followin. Therapeutic interventions include physical therapy, occupational therapy, speech therapy 5 days p er week for a total of 900 minutes per week for the following: A. Physical therapy, bed mobility, transfers, sitting balance, standing balance, endurance, stren gth, gait, stairs. B. Occupational therapy ADLs, adaptive equipment needs, energy conservation techniques, body mech anics, safety, endurance. C. Speech therapy cognition, communication, dysphagia. 2. A 24-hour rehabilitation nursing care for carryover of all mobility and ADL skills, facilitate ou t of bed to a chair as much as possible, maintain cardiopulmonary compliance, rehabilitation nursing also for bowel and bladder training, maintain skin integrity, optimize p.o. intake. 3. Rehabilitation social science manager support, adjustment counseling, disposition planning. 4. Continue close medical management for the following: A. Stroke prophylaxis. Plavix and aspirin. Continue with this. B. Hypertension. Maintain systolics between 130 and 150. Status post cerebrovascular accident. C. Aspiration precautions with his dysphagia. Motor strengthening and swallowing strategies. FUNCTIONAL GOALS: 1. Modified independent in all mobility skills including bed mobility, transfers, gait. Gait up to 250 feet with use of a front-wheel walker. 2. Modified independent in all ADL skills including bathing, dressing, hygiene, toileting. 3. Increase functional endurance, strength and safety. 4. Increase speech intelligibility. 5. Family training. DISPOSITION PLAN: Back home. ESTIMATED LENGTH OF STAY FOR PROCEDURES: Will be 14 days post to likely include home health phy sical therapy, occupational therapy and nursing. REHABILITATION PROGNOSIS: Good. Please note I personally performed this patient's rehabilitation history and physical status post adm ission evaluation. Patient has a reasonable prognosis for significant functional recovery in a reaso nable time frame, agreeable to participate with acute rehabilitation program. Since the initial scre en, the patient's functional levels and medical status are essentially unchanged. Dictated By: TRAY HANSEN MD RG/NTS Conf#: [id number] DID#: [id number] CC: JOSUE WADE MD;*EndCC*
[2019-03-11 07:52] VITALS: BP 111/62; PULSE 57; RESP 17
--- NOTE | 2019-03-11 08:47 | CONS ---
Assessment/Plan Assessment/Plan Assessment/Plan (Daily) 1. 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 BP controlled, will change catapres parameter and try to dc 3. PT and OT to begin today 4. Cognitive dysfx unchanged Consultation Date/Type/Reason Admit Date/Time March 08, 2019 at 22:13 Initial Consult Date Date/Time of Note DATE: 03/11/19 TIME: 08:46 Detailed Summary Respiratory: No shortness of breath Cardiovascular: No chest pain, No lightheadedness Gastrointestinal: no complaints Genitourinary: no complaints Neurologic: no complaints Exam/Review of Systems Exam Vitals Vital Signs Date Temp Pulse Resp B/P (MAP) Pulse Ox O2 O2 Flow FiO2 Time Delivery Rate 03/11/19 97.5 57 17 111/62 93 Room Air 07:52 (78) Intake and Output 03/10/19 03/10/19 03/11/19 1515:00 23:00 07:00 IntakeIntake Total 650 ml 1200 ml 240 ml OutputOutput Total 600 ml BalanceBalance 650 ml 600 ml 240 ml Neck: No jvd Respiratory: clear to auscultation Cardiovascular: regular rate and rhythm Gastrointestinal: soft Extremities: No edema 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: focal weakness (right sided) Results Result Diagram: 03/09/19 0703 03/09/19 0703 Medications Medication Current Medications Magnesium Hydroxide (Milk Of Mag) 30 ml BID PRN PO CONSTIPATION; Start 03/08/19 at 23:30 Lactulose (Enulose) 20 gm DAILY PRN PO CONSTIPATION Last administered on 03/09/19at 16:49; Admin Dose 20 GM; Start 03/08/19 at 23:30 Bisacodyl (Dulcolax Supp) 10 mg DAILY PRN [place] CONSTIPATION; Start 03/08/19 at 23:30 Ondansetron HCl (Zofran Tab) 4 mg Q6H PRN PO NAUSEA AND/OR VOMITING; Start 03/08/19 at 23:45 Oxybutynin Chloride (Ditropan Xl) 10 mg DAILY PO Last administered on 03/10/19at 08:40; Admin Dose 10 MG; Start 03/09/19 at 09:00 Pantoprazole (Protonix Tab) 40 mg DAILY@06 PO Last administered on 03/11/19at 06:32; Admin Dose 40 MG; Start 03/09/19 at 06:00 Sulfadiazine (Sulfadiazine) 1,000 mg QID PO Last administered on 03/10/19 21:05; Admin Dose 1,000 MG; Start 03/09/19 at 09:00 Donepezil HCl (Aricept) 5 mg BID PO Last administered on 03/10/19 21:08; Admin Dose 5 MG; Start 03/09/19 at 09:00 Enoxaparin Sodium (Lovenox) 40 mg DAILY SC Last administered on 03/10/19 08:51; Admin Dose 40 MG; Start 03/09/19 at 09:00 Lorazepam (Ativan) 1 mg HS PRN PO INSOMNIA; Start 03/08/19 at 23:45 Metoprolol Succinate (Toprol Xl) 25 mg BID PO Last administered on 03/10/19 21:12; Admin Dose 25 MG; Start 03/09/19 at 09:00 Nifedipine (Procardia Xl) 30 mg BID PO Last administered on 03/10/19 21:11; Admin Dose 30 MG; Start 03/09/19 at 09:00 Acetaminophen (Tylenol Tab) 650 mg Q6H PRN PO MILD PAIN(1-3)OR ELEVATED TEMP; Start 03/08/19 at 23:45 Aspirin (Ecotrin) 325 mg DAILY PO Last administered on 03/10/19 08:40; Admin Dose 325 MG; Start 03/09/19 at 09:00 Atorvastatin Calcium (Lipitor) 10 mg DAILY@21 PO Last administered on 03/10/19 21:05; Admin Dose 10 MG; Start 03/09/19 at 21:00 Clonidine (Catapres) 0.1 mg Q8 PO Last administered on 03/11/19 06:33; Admin Dose 0.1 MG; Start 03/08/19 at 23:30 Clopidogrel Bisulfate (plaVIX) 75 mg DAILY PO Last administered on 03/10/19 08:40; Admin Dose 75 MG; Start 03/09/19 at 09:00 Docusate Sodium (Colace) 100 mg Q12H PRN PO CONSTIPATION; Start 03/08/19 at 23:45 JOSUE WADE MD March 11, 2019 08:47
[2019-03-11] MEDS: METOPROLOL (XL) 25 MG TAB PO SCH ×2 (09:00→20:28)
[2019-03-11] MEDS: SULFADIAZINE 500 MG TAB PO SCH ×4 (09:00→20:28)
[2019-03-11] MEDS: CLOPIDOGREL 75 MG TAB PO SCH (11:19)
[2019-03-11] MEDS: DONEPEZIL 5 MG TAB PO SCH ×2 (11:20→20:28)
[2019-03-11] MEDS: ASPIRIN (EC) 325 MG TAB PO SCH (11:20)
[2019-03-11] MEDS: OXYBUTYNIN (XL) 5 MG TAB PO SCH (11:21)
[2019-03-11] MEDS: NIFEdipine (XL) 30 MG TAB PO SCH ×2 (11:23→20:27)
[2019-03-11] MEDS: ENOXAPARIN 40 MG/0.4 ML SYG SC SCH (13:15)
--- NOTE | 2019-03-11 13:37 | PN ---
Date/Time of Note Date/Time of Note DATE: 03/11/19 TIME: 13:36 Objective Vital Signs Date Temp Pulse Resp B/P (MAP) Pulse Ox O2 O2 Flow FiO2 Time Delivery Rate 03/11/19 97.5 57 17 111/62 93 Room Air 07:52 (78) Intake and Output 03/10/19 03/10/19 03/11/19 1515:00 23:00 07:00 IntakeIntake Total 650 ml 1200 ml 240 ml OutputOutput Total 600 ml BalanceBalance 650 ml 600 ml 240 ml Exam INTERDISCIPLINARY TEAM CONFERENCE Attended by PT, OT, ST, Cable Installation Technician, Social Work, Rehabilitation Nursing, Check Services Clerk and Remote Sensing ScientistInternet Researcher Exam: Pulm- cta Abd-soft BOWEL- Cont BLADDER-Cont/incont SKIN- intact OT- DRESSING-min/mod BATHING-min/mod TOILETING-mod PT- BED MOBILITY-cga TRANSFERS-min AMBULATION-min 100 feet SPEECH- COGNITION-min Dysphagia- A/P- Interdisciplinary team conference held today. Please see interdisciplinary sheet. Working toward d.c. on 03/19 with post discharge follow up of physical therapy, occupational therapy. Results/Medications Result Diagram: 03/09/19 0703 03/09/19 0703 Medications Current Medications Magnesium Hydroxide (Milk Of Mag) 30 ml BID PRN PO CONSTIPATION; Start 03/08/19 at 23:30 Lactulose (Enulose) 20 gm DAILY PRN PO CONSTIPATION Last administered on 03/09/19at 16:49; Admin Dose 20 GM; Start 03/08/19 at 23:30 Bisacodyl (Dulcolax Supp) 10 mg DAILY PRN [place] CONSTIPATION; Start 03/08/19 at 23:30 Ondansetron HCl (Zofran Tab) 4 mg Q6H PRN PO NAUSEA AND/OR VOMITING; Start 03/08/19 at 23:45 Oxybutynin Chloride (Ditropan Xl) 10 mg DAILY PO Last administered on 03/11/19at 11:21; Admin Dose 10 MG; Start 03/09/19 at 09:00 Pantoprazole (Protonix Tab) 40 mg DAILY@06 PO Last administered on 03/11/19at 06:32; Admin Dose 40 MG; Start 03/09/19 at 06:00 Sulfadiazine (Sulfadiazine) 1,000 mg QID PO Last administered on 03/11/19 13:22; Admin Dose 1,000 MG; Start 03/09/19 at 09:00 Donepezil HCl (Aricept) 5 mg BID PO Last administered on 03/11/19 11:20; Admin Dose 5 MG; Start 03/09/19 at 09:00 Enoxaparin Sodium (Lovenox) 40 mg DAILY SC Last administered on 03/11/19 13:15; Admin Dose 40 MG; Start 03/09/19 at 09:00 Lorazepam (Ativan) 1 mg HS PRN PO INSOMNIA; Start 03/08/19 at 23:45 Metoprolol Succinate (Toprol Xl) 25 mg BID PO Last administered on 03/10/19 21:12; Admin Dose 25 MG; Start 03/09/19 at 09:00 Nifedipine (Procardia Xl) 30 mg BID PO Last administered on 03/11/19 11:23; Admin Dose 30 MG; Start 03/09/19 at 09:00 Acetaminophen (Tylenol Tab) 650 mg Q6H PRN PO MILD PAIN(1-3)OR ELEVATED TEMP; Start 03/08/19 at 23:45 Aspirin (Ecotrin) 325 mg DAILY PO Last administered on 03/11/19 11:20; Admin Dose 325 MG; Start 03/09/19 at 09:00 Atorvastatin Calcium (Lipitor) 10 mg DAILY@21 PO Last administered on 03/10/19 21:05; Admin Dose 10 MG; Start 03/09/19 at 21:00 Clonidine (Catapres) 0.1 mg Q8 PO Last administered on 03/11/19 06:33; Admin Dose 0.1 MG; Start 03/08/19 at 23:30 Clopidogrel Bisulfate (plaVIX) 75 mg DAILY PO Last administered on 03/11/19 11:19; Admin Dose 75 MG; Start 03/09/19 at 09:00 Docusate Sodium (Colace) 100 mg Q12H PRN PO CONSTIPATION; Start 03/08/19 at 23:45 BOY HANSEN MD March 11, 2019 13:37
[2019-03-11 14:25] VITALS: BP 113/59; PULSE 60; RESP 17
[2019-03-11 20:00] VITALS: BP 157/56; PULSE 60; RESP 18
[2019-03-11] MEDS: ATORVASTATIN 10 MG TAB PO SCH (20:26)
[2019-03-11] MEDS: LORAZEPAM 0.5 MG TAB PO PRN (20:26)
[2019-03-12 02:00] VITALS: BP 169/86; PULSE 69; RESP 18
[2019-03-12] MEDS: PANTOPRAZOLE (EC) 40 MG TAB PO SCH (06:29)
[2019-03-12 07:38] VITALS: BP 142/69; PULSE 62; RESP 18
[2019-03-12] MEDS: OXYBUTYNIN (XL) 5 MG TAB PO SCH (08:38)
[2019-03-12] MEDS: SULFADIAZINE 500 MG TAB PO SCH ×4 (08:38→21:45)
[2019-03-12] MEDS: ENOXAPARIN 40 MG/0.4 ML SYG SC SCH (08:38)
[2019-03-12] MEDS: NIFEdipine (XL) 30 MG TAB PO SCH (08:38)
[2019-03-12] MEDS: ASPIRIN (EC) 325 MG TAB PO SCH (08:38)
[2019-03-12] MEDS: DONEPEZIL 5 MG TAB PO SCH ×2 (08:39→21:44)
[2019-03-12] MEDS: METOPROLOL (XL) 25 MG TAB PO SCH (08:39)
[2019-03-12] MEDS: CLOPIDOGREL 75 MG TAB PO SCH (08:39)
--- NOTE | 2019-03-12 10:05 | CONS ---
Assessment/Plan Assessment/Plan Assessment/Plan (Daily) 1. Cerebral infarct with right hemip, need additional pt and ot 2. BP is a bit labile, will try to make regimen more simple for home use with once daily schedule and will add arb if bp still elevated. Will check orthostatic bp's. 3. Pt want to go home but rev with him the importance of remaining here for pt and ot 4. Cognition remains impaired and unchanged Consultation Date/Type/Reason Admit Date/Time March 08, 2019 at 22:13 Initial Consult Date Date/Time of Note DATE: 03/12/19 TIME: 10:02 Detailed Summary Respiratory: No cough, No shortness of breath Cardiovascular: no complaints Gastrointestinal: no complaints Genitourinary: no complaints Neurologic: no complaints Exam/Review of Systems Exam Vitals Vital Signs Date Temp Pulse Resp B/P (MAP) Pulse Ox O2 O2 Flow FiO2 Time Delivery Rate 03/12/19 97.3 62 18 142/69 93 Room Air 07:38 (93) Intake and Output 03/11/19 03/11/19 03/12/19 1515:00 23:00 07:00 IntakeIntake Total 360 ml 640 ml 300 ml BalanceBalance 360 ml 640 ml 300 ml Neck: No jvd Respiratory: clear to auscultation Cardiovascular: regular rate and rhythm Gastrointestinal: soft Extremities: No edema 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: other (right facial and right hemip) Results Result Diagram: 03/09/19 0703 03/09/19 0703 Medications Medication Current Medications Magnesium Hydroxide (Milk Of Mag) 30 ml BID PRN PO CONSTIPATION; Start 03/08/19 at 23:30 Lactulose (Enulose) 20 gm DAILY PRN PO CONSTIPATION Last administered on 03/09/19at 16:49; Admin Dose 20 GM; Start 03/08/19 at 23:30 Bisacodyl (Dulcolax Supp) [address] [place] CONSTIPATION; Start 03/08/19 at 23:30 Ondansetron HCl (Zofran Tab) 4 mg Q6H PRN PO NAUSEA AND/OR VOMITING; Start 03/08/19 at 23:45 Oxybutynin Chloride (Ditropan Xl) 10 mg DAILY PO Last administered on 03/12/19at 08:38; Admin Dose 10 MG; Start 03/09/19 at 09:00 Pantoprazole (Protonix Tab) 40 mg DAILY@06 PO Last administered on 03/12/19 06:29; Admin Dose 40 MG; Start 03/09/19 at 06:00 Sulfadiazine (Sulfadiazine) 1,000 mg QID PO Last administered on 03/12/19 08:38; Admin Dose 1,000 MG; Start 03/09/19 at 09:00 Donepezil HCl (Aricept) 5 mg BID PO Last administered on 03/12/19 08:39; Admin Dose 5 MG; Start 03/09/19 at 09:00 Enoxaparin Sodium (Lovenox) 40 mg DAILY SC Last administered on 03/12/19 08:38; Admin Dose 40 MG; Start 03/09/19 at 09:00 Lorazepam (Ativan) 1 mg HS PRN PO INSOMNIA Last administered on 03/11/19 20:26; Admin Dose 1 MG; Start 03/08/19 at 23:45 Metoprolol Succinate (Toprol Xl) 25 mg BID PO Last administered on 03/12/19 08:39; Admin Dose 25 MG; Start 03/09/19 at 09:00 Nifedipine (Procardia Xl) 30 mg BID PO Last administered on 03/12/19 08:38; Admin Dose 30 MG; Start 03/09/19 at 09:00 Acetaminophen (Tylenol Tab) 650 mg Q6H PRN PO MILD PAIN(1-3)OR ELEVATED TEMP; Start 03/08/19 at 23:45 Aspirin (Ecotrin) 325 mg DAILY PO Last administered on 03/12/19 08:38; Admin Dose 325 MG; Start 03/09/19 at 09:00 Atorvastatin Calcium (Lipitor) 10 mg DAILY@21 PO Last administered on 03/11/19 20:26; Admin Dose 10 MG; Start 03/09/19 at 21:00 Clonidine (Catapres) 0.1 mg Q8 PO Last administered on 03/11/19 22:35; Admin Dose 0.1 MG; Start 03/08/19 at 23:30 Clopidogrel Bisulfate (plaVIX) 75 mg DAILY PO Last administered on 03/12/19 08:39; Admin Dose 75 MG; Start 03/09/19 at 09:00 Docusate Sodium (Colace) 100 mg Q12H PRN PO CONSTIPATION; Start 5/10/19 at 23:45 JOSUE WADE MD March 12, 2019 10:05
--- NOTE | 2019-03-12 14:09 | PN ---
Date/Time of Note Date/Time of Note DATE: 03/12/19 TIME: 14:09 Subjective Impaired STM Objective Vital Signs Date Temp Pulse Resp B/P (MAP) Pulse Ox O2 O2 Flow FiO2 Time Delivery Rate 03/12/19 97.3 62 18 142/69 93 Room Air 07:38 (93) Intake and Output 03/11/19 03/11/19 03/12/19 1515:00 23:00 07:00 IntakeIntake Total 360 ml 640 ml 300 ml BalanceBalance 360 ml 640 ml 300 ml Exam pulm-cta abd-soft cga ambulation Results/Medications Result Diagram: 03/09/1903 03/09/19 0703 Medications Current Medications Magnesium Hydroxide (Milk Of Mag) 30 ml BID PRN PO CONSTIPATION; Start 03/08/19 at 23:30 Lactulose (Enulose) 20 gm DAILY PRN PO CONSTIPATION Last administered on 03/09/19at 16:49; Admin Dose 20 GM; Start 03/08/19 at 23:30 Bisacodyl (Dulcolax Supp) 10 mg DAILY PRN [place] CONSTIPATION; Start 03/08/19 at 23:30 Ondansetron HCl (Zofran Tab) 4 mg Q6H PRN PO NAUSEA AND/OR VOMITING; Start 03/08/19 at 23:45 Oxybutynin Chloride (Ditropan Xl) 10 mg DAILY PO Last administered on 03/12/19at 08:38; Admin Dose 10 MG; Start 03/09/19 at 09:00 Pantoprazole (Protonix Tab) 40 mg DAILY@06 PO Last administered on 03/12/19at 06:29; Admin Dose 40 MG; Start 03/09/19 at 06:00 Sulfadiazine (Sulfadiazine) 1,000 mg QID PO Last administered on 03/12/19 12:52; Admin Dose 1,000 MG; Start 03/09/19 at 09:00 Donepezil HCl (Aricept) 5 mg BID PO Last administered on 03/12/19at 08:39; Admin Dose 5 MG; Start 03/09/19 at 09:00 Lorazepam (Ativan) 1 mg HS PRN PO INSOMNIA Last administered on 03/11/19at 20:26; Admin Dose 1 MG; Start 03/08/19 at 23:45 Acetaminophen (Tylenol Tab) 650 mg Q6H PRN PO MILD PAIN(1-3)OR ELEVATED TEMP; Start 03/08/19 at 23:45 Aspirin (Ecotrin) 325 mg DAILY PO Last administered on 03/12/19at 08:38; Admin Dose 325 MG; Start 03/09/19 at 09:00 Atorvastatin Calcium (Lipitor) 10 mg DAILY@21 PO Last administered on 03/11/19at 20:26; Admin Dose 10 MG; Start 03/09/19 at 21:00 Clonidine (Catapres) 0.1 mg Q8 PO Last administered on 03/11/19at 22:35; Admin Dose 0.1 MG; Start 03/08/19 at 23:30 Clopidogrel Bisulfate (plaVIX) 75 mg DAILY PO Last administered on 03/12/19at 08:39; Admin Dose 75 MG; Start 03/09/19 at 09:00 Docusate Sodium (Colace) 100 mg Q12H PRN PO CONSTIPATION; Start 03/08/19 at 23:45 Metoprolol Succinate (Toprol Xl) 50 mg DAILY PO ; Start 03/13/19 at 09:00 Nifedipine (Procardia Xl) 60 mg DAILY PO ; Start 03/13/19 at 09:00 Assessment/Plan Additional Assessment/Plan Rehab- Left cerebrovascular accident Continue current rehab activities. Dysarthria. Oropharyngeal dysphagia. Hypertension. Crohn's colitis. Anemia. Prostate carcinoma. Osteoarthritis. Prerenal azotemia. BOY HANSEN MD March 12, 2019 14:09
[2019-03-12 14:17] VITALS: BP 140/78; PULSE 68; RESP 18
[2019-03-12 14:52] VITALS: BP 120/67; PULSE 60; RESP 18
[2019-03-12 21:00] VITALS: BP_SYST 173; BP_SYST 187; BP_DIAS 92; BP_DIAS 93; PULSE 60; PULSE 71; RESP 18
[2019-03-12 21:11] VITALS: BP 141/66; PULSE 51; RESP 18
[2019-03-12] MEDS: ATORVASTATIN 10 MG TAB PO SCH (21:44)
[2019-03-12] MEDS: LORAZEPAM 0.5 MG TAB PO PRN (21:44)
[2019-03-13] VITALS (8 sets, daily range): BP systolic 121–155; BP diastolic 65–79; PULSE 57–95; RESP 15–18
[2019-03-13] MEDS: PANTOPRAZOLE (EC) 40 MG TAB PO SCH (06:47)
[2019-03-13] MEDS: OXYBUTYNIN (XL) 5 MG TAB PO SCH (08:17)
[2019-03-13] MEDS: ASPIRIN (EC) 325 MG TAB PO SCH (08:18)
[2019-03-13] MEDS: CLOPIDOGREL 75 MG TAB PO SCH (08:18)
[2019-03-13] MEDS: DONEPEZIL 5 MG TAB PO SCH ×2 (08:18→22:14)
[2019-03-13] MEDS: SULFADIAZINE 500 MG TAB PO SCH ×4 (08:18→22:13)
--- NOTE | 2019-03-13 08:26 | CONS ---
Assessment/Plan Assessment/Plan Assessment/Plan (Daily) 1. Stable psot cerrebral infarct 2. BP is labile, will resume bid meds and add losartan 3. Cont PT and OT Consultation Date/Type/Reason Admit Date/Time March 08, 2019 at 22:13 Initial Consult Date Date/Time of Note DATE: 03/13/19 TIME: 08:25 Detailed Summary Cardiovascular: No chest pain, No lightheadedness Gastrointestinal: no complaints Genitourinary: no complaints Musculoskeletal: no complaints Exam/Review of Systems Exam Vitals Vital Signs Date Temp Pulse Resp B/P (MAP) Pulse Ox O2 O2 Flow FiO2 Time Delivery Rate 03/13/19 60 18 139/79 06:00 (99) 03/13/19 98.0 96 Room Air 02:00 Intake and Output 03/12/19 03/12/19 03/13/19 1515:00 23:00 07:00 IntakeIntake Total 300 ml 300 ml 50 ml BalanceBalance 300 ml 300 ml 50 ml Neck: No jvd Respiratory: clear to auscultation Gastrointestinal: soft Extremities: No edema 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: focal weakness (right hemip) Results Result Diagram: 03/09/19 0703 03/09/19 0703 Results 24hrs Laboratory Tests Test 03/13/19 07:45 White Blood Count Pending Red Blood Count Pending Hemoglobin Pending Hematocrit Pending Mean Corpuscular Volume Pending Mean Corpuscular Hemoglobin Pending Mean Corpuscular Hemoglobin Concent Pending Red Cell Distribution Width Pending Platelet Count Pending Mean Platelet Volume Pending Medications Medication Current Medications Magnesium Hydroxide (Milk Of Mag) 30 ml BID PRN PO CONSTIPATION; Start 03/08/19 at 23:30 Lactulose (Enulose) 20 gm DAILY PRN PO CONSTIPATION Last administered on 03/09/19at 16:49; Admin Dose 20 GM; Start 03/08/19 at 23:30 Bisacodyl (Dulcolax Supp) 10 mg DAILY PRN [place] CONSTIPATION; Start 03/08/19 at 23:30 Ondansetron HCl (Zofran Tab) 4 mg Q6H PRN PO NAUSEA AND/OR VOMITING; Start 03/08/19 at 23:45 Oxybutynin Chloride (Ditropan Xl) 10 mg DAILY PO Last administered on 03/12/19at 08:38; Admin Dose 10 MG; Start 03/09/19 at 09:00 Pantoprazole (Protonix Tab) 40 mg DAILY@06 PO Last administered on 03/13/19 06:47; Admin Dose 40 MG; Start 03/09/19 at 06:00 Sulfadiazine (Sulfadiazine) 1,000 mg QID PO Last administered on 03/12/19 21:45; Admin Dose 1,000 MG; Start 03/09/19 at 09:00 Donepezil HCl (Aricept) 5 mg BID PO Last administered on 03/12/19 21:44; Admin Dose 5 MG; Start 03/09/19 at 09:00 Lorazepam (Ativan) 1 mg HS PRN PO INSOMNIA Last administered on 03/12/19 21:44; Admin Dose 1 MG; Start 03/08/19 at 23:45 Acetaminophen (Tylenol Tab) 650 mg Q6H PRN PO MILD PAIN(1-3)OR ELEVATED TEMP Last administered on 03/12/19 22:35; Admin Dose 650 MG; Start 03/08/19 at 23:45 Aspirin (Ecotrin) 325 mg DAILY PO Last administered on 03/12/19 08:38; Admin Dose 325 MG; Start 03/09/19 at 09:00 Atorvastatin Calcium (Lipitor) 10 mg DAILY@21 PO Last administered on 03/12/19 21:44; Admin Dose 10 MG; Start 03/09/19 at 21:00 Clonidine (Catapres) 0.1 mg Q8 PO Last administered on 03/13/19 06:47; Admin Dose 0.1 MG; Start 03/08/19 at 23:30 Clopidogrel Bisulfate (plaVIX) 75 mg DAILY PO Last administered on 03/12/19 08:39; Admin Dose 75 MG; Start 03/09/19 at 09:00 Docusate Sodium (Colace) 100 mg Q12H PRN PO CONSTIPATION; Start 03/08/19 at 23:45 Metoprolol Succinate (Toprol Xl) 50 mg DAILY PO ; Start 03/13/19 at 09:00 Nifedipine (Procardia Xl) 60 mg DAILY PO ; Start 03/13/19 at 09:00 JOSUE WADE MD March 13, 2019 08:26
[2019-03-13] MEDS: NIFEdipine (XL) 30 MG TAB PO SCH ×2 (08:35→22:14)
[2019-03-13] MEDS: METOPROLOL (XL) 25 MG TAB PO SCH ×2 (08:36→21:00)
[2019-03-13] MEDS ORDERED: NIFEdipine (XL) 60 MG TAB PO SCH (09:00)
[2019-03-13] MEDS ORDERED: METOPROLOL (XL) 50 MG TAB PO SCH (09:00)
[2019-03-13] MEDS ORDERED: LOSARTAN 25 MG TAB PO SCH (09:00)
--- NOTE | 2019-03-13 14:34 | PN ---
Date/Time of Note Date/Time of Note DATE: 03/13/19 TIME: 14:33 Subjective No new complaints Objective Vital Signs Date Temp Pulse Resp B/P (MAP) Pulse Ox O2 O2 Flow FiO2 Time Delivery Rate 03/13/19 58 137/68 13:55 (91) 03/13/19 97.6 18 91 Room Air 07:30 Intake and Output 03/12/19 03/12/19 03/13/19 1515:00 23:00 07:00 IntakeIntake Total 300 ml 300 ml 50 ml BalanceBalance 300 ml 300 ml 50 ml Exam pulm-cta abd-soft min assist ambulation Results/Medications Result Diagram: 03/13/19 0745 03/13/19 0745 Results 24 hrs Laboratory Tests Test 03/13/19 07:45 White Blood Count 6.9 # Red Blood Count 3.64 L Hemoglobin 10.9 L Hematocrit 34.3 L Mean Corpuscular Volume 94.2 Mean Corpuscular Hemoglobin 29.9 Mean Corpuscular Hemoglobin Concent 31.8 L Red Cell Distribution Width 14.2 Platelet Count 257 Mean Platelet Volume 8.9 Immature Granulocytes % 0.400 Neutrophils % 45.0 Lymphocytes % 37.2 Monocytes % 9.6 Eosinophils % 6.6 Basophils % 1.2 Nucleated Red Blood Cells % 0.0 Immature Granulocytes # 0.030 Neutrophils # 3.1 Lymphocytes # 2.6 Monocytes # 0.7 Eosinophils # 0.5 Basophils # 0.1 Nucleated Red Blood Cells # 0.0 Sodium Level 142 Potassium Level 3.9 Chloride Level 107 Carbon Dioxide Level 26 Anion Gap 9 Blood Urea Nitrogen 23 H Creatinine 0.99 Est Glomerular Filtrat Rate mL/min Glucose Level 116 Calcium Level 9.2 Phosphorus Level 3.5 Magnesium Level 2.2 Medications Current Medications Magnesium Hydroxide (Milk Of Mag) 30 ml BID PRN PO CONSTIPATION; Start 03/08/19 at 23:30 Lactulose (Enulose) 20 gm DAILY PRN PO CONSTIPATION Last administered on 03/09/19at 16:49; Admin Dose 20 GM; Start 03/08/19 at 23:30 Bisacodyl (Dulcolax Supp) 10 mg DAILY PRN [place] CONSTIPATION; Start 03/08/19 at 23:30 Ondansetron HCl (Zofran Tab) 4 mg Q6H PRN PO NAUSEA AND/OR VOMITING; Start 03/08/19 at 23:45 Oxybutynin Chloride (Ditropan Xl) 10 mg DAILY PO Last administered on 03/13/19 08:17; Admin Dose 10 MG; Start 03/09/19 at 09:00 Pantoprazole (Protonix Tab) 40 mg DAILY@06 PO Last administered on 03/13/19 06:47; Admin Dose 40 MG; Start 03/09/19 at 06:00 Sulfadiazine (Sulfadiazine) 1,000 mg QID PO Last administered on 03/13/19 13:23; Admin Dose 1,000 MG; Start 03/09/19 at 09:00 Donepezil HCl (Aricept) 5 mg BID PO Last administered on 03/13/19 08:18; Admin Dose 5 MG; Start 03/09/19 at 09:00 Lorazepam (Ativan) 1 mg HS PRN PO INSOMNIA Last administered on 03/12/19 21:44; Admin Dose 1 MG; Start 03/08/19 at 23:45 Acetaminophen (Tylenol Tab) 650 mg Q6H PRN PO MILD PAIN(1-3)OR ELEVATED TEMP Last administered on 03/12/19 22:35; Admin Dose 650 MG; Start 03/08/19 at 23:45 Aspirin (Ecotrin) 325 mg DAILY PO Last administered on 03/13/19 08:18; Admin Dose 325 MG; Start 03/09/19 at 09:00 Atorvastatin Calcium (Lipitor) 10 mg DAILY@21 PO Last administered on 03/12/19 21:44; Admin Dose 10 MG; Start 03/09/19 at 21:00 Clonidine (Catapres) 0.1 mg Q8 PO Last administered on 03/13/19 06:47; Admin Dose 0.1 MG; Start 03/08/19 at 23:30 Clopidogrel Bisulfate (plaVIX) 75 mg DAILY PO Last administered on 03/13/19 08:18; Admin Dose 75 MG; Start 03/09/19 at 09:00 Docusate Sodium (Colace) 100 mg Q12H PRN PO CONSTIPATION; Start 03/08/19 at 23:45 Metoprolol Succinate (Toprol Xl) 25 mg BID PO Last administered on 03/13/19 08:36; Admin Dose 25 MG; Start 03/13/19 at 09:00 Nifedipine (Procardia Xl) 30 mg BID PO Last administered on 03/13/19at 08:35; Admin Dose 30 MG; Start 03/13/19 at 09:00 Losartan Potassium (Cozaar) 25 mg DAILY PO ; Start 03/13/19 at 09:00 Assessment/Plan Additional Assessment/Plan Rehab- Left cerebrovascular accident Continue current rehab interdisciplinary treatment plan Dysarthria. Oropharyngeal dysphagia. Hypertension. Crohn's colitis. Anemia. Prostate carcinoma. Osteoarthritis. Prerenal azotemia. BOY HANSEN MD March 13, 2019 14:34
--- NOTE | 2019-03-13 19:05 | CONS ---
DATE OF ADMISSION: 03/08/2019 DATE OF CONSULTATION: 03/13/2019 TYPE OF CONSULTATION: Psychological. REFERRING PHYSICIAN: Boy Fermin MD. CONSULTING PSYCHOLOGIST: Kristal Meek, PhD. REASON FOR CONSULTATION: This consultation was requested by Dr. Lázaro Fermin in order to evaluate the cognitive and emotional functioning of this patient related to his present medical condition. HISTORY OF PRESENT ILLNESS: The patient is an 84-year-old male. The patient does have a history of hypertension, Crohn's colitis, prostate carcinoma and other medical problems that were presented when he was admitted to [facility] on 03/06/2019 with some right-sided weakness and a decline in functional skills. The patient had an MRI of the brain showing an acute left frontal acute infarct. The patient was eventually cleared medically and sent to the acute rehabilitation unit for acute multidisciplinary rehabilitation. Prior to the recent events, the patient was independent with all mobility and ADLs. There is a slight history of mild dementia may relate to some of his cardiovascular problems. The patient is motivated to get better. The patient is confused. The patient stated "I don't know why I am here." FAMILY AND SOCIAL HISTORY: The patient lives at home in [place] with his and 35-year-old son. The age of the son is approximated because the patient did not know exactly how old his son was. The patient does want to return home upon discharge. MEDICATIONS: The patient is currently on: 1. Aricept 5 mg twice a day. 2. The patient is also on lorazepam 1 mg at bedtime p.r.n. SUBSTANCE USE: The patient reports that he does not smoke. The patient reports that he does not drink alcohol or use other drugs. MENTAL STATUS EXAMINATION: APPEARANCE: The patient was seen in his wheelchair. He appears to be of average height and weight. The patient is right handed. The patient wears glasses. The patient is old. BEHAVIOR: The patient was cooperative during the consultation. The patient did attempt to answer all questions presented to him by the interviewer. The patient did get confused from some of the questions and did have difficulty answering some of them. MOOD AND AFFECT: The patient's mood appears to be slightly depressed. Affect does appear to be slightly anxious. The patient reports that he is basically frustrated and wants to go home. PERCEPTION: The patient reports no hallucinations or delusions. The patient was alert to person, but not exactly to place, situation, but he was aware of time. MEMORY AND COGNITION: The patient's memory and cognition are impaired. He was having difficulty remembering recent and remote events. He could not name the hospital. He was able to name the month and the year. He was able to say who the logger all round is. Did not remember who the governor of the [facility] is or the mayor of the [facility]. The patient could not spell "world" backwards with "LO" The patient could not do any serial 7 subtractions from 100. His first 2 answers were 94 and 95 and he could not come up with any other answers. Overall, the patient appears to have some cognitive dysfunction likely related to his recent CVA, but he also had some dementing process going on prior to coming to the hospital. INTELLIGENCE: Intelligence would appear to fall in the average range when he was functioning adequately. INSIGHT: Poor. JUDGMENT: Poor. THOUGHT CONTENT: The patient is concerned about his present medical condition. The patient does want to return home as soon as possible. The patient does not know why he is here in the program at the present time. The patient wants to do whatever he can to get himself back home. DISCUSSION: The patient may be able to benefit from some cognitive/behavioral psychotherapy while he is on the unit. This psychotherapy would focus on his cognitive functioning. The patient possibly could benefit from some memory therapy using the memory book that might help him with his cognitions. Also, working with his level of frustration about all his medical problems. DIAGNOSTIC IMPRESSION: 1. 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 2. 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 Thank you very much, Dr. Lázaro Fermin, for referring this individual. Please do not hesitate to call if you have additional questions. Dictated By: KRISTAL MEEK PHD CECY/JOCELYNN Conf#: [id number] DID#: [id number] CC: BOY FERMIN MD;*EndCC* MTDD
[2019-03-13] MEDS: ATORVASTATIN 10 MG TAB PO SCH (22:13)
[2019-03-14] VITALS (7 sets, daily range): BP systolic 132–176; BP diastolic 60–81; PULSE 51–63; RESP 18
[2019-03-14] MEDS: PANTOPRAZOLE (EC) 40 MG TAB PO SCH (06:34)
--- NOTE | 2019-03-14 08:22 | CONS ---
Assessment/Plan Assessment/Plan Assessment/Plan (Daily) 1. 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 BP control improved, [facility] inc 3. Pt wants to go home, if PT and staff on rehab concur and ok with his I have no objection with home PT Consultation Date/Type/Reason Admit Date/Time March 08, 2019 at 22:13 Initial Consult Date Date/Time of Note DATE: 03/14/19 TIME: 08:20 Detailed Summary Respiratory: No cough, No shortness of breath Cardiovascular: No chest pain, No lightheadedness Gastrointestinal: no complaints Genitourinary: no complaints Neurologic: no complaints Exam/Review of Systems Exam Vitals Vital Signs Date Temp Pulse Resp B/P (MAP) Pulse Ox O2 O2 Flow FiO2 Time Delivery Rate 03/14/19 98.5 60 18 142/67 97 Room Air 02:00 (92) Intake and Output 03/13/19 03/13/19 03/14/19 1515:00 23:00 07:00 IntakeIntake Total 1080 ml BalanceBalance 1080 ml Neck: No jvd Respiratory: clear to auscultation Cardiovascular: regular rate and rhythm Gastrointestinal: soft 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: focal weakness (right side) Results Result Diagram: 03/14/19 0555 03/14/19 0555 Results 24hrs Laboratory Tests Test 03/14/19 05:55 White Blood Count 7.3 Red Blood Count 3.75 L Hemoglobin 11.3 L Hematocrit 35.7 L Mean Corpuscular Volume 95.2 Mean Corpuscular Hemoglobin 30.1 Mean Corpuscular Hemoglobin Concent 31.7 L Red Cell Distribution Width 14.0 Platelet Count 267 Mean Platelet Volume 8.6 Immature Granulocytes % 0.400 Neutrophils % 41.1 Lymphocytes % 39.8 Monocytes % 11.2 H Eosinophils % 6.7 Basophils % 0.8 Nucleated Red Blood Cells % 0.0 Immature Granulocytes # 0.030 Neutrophils # 3.0 Lymphocytes # 2.9 Monocytes # 0.8 Eosinophils # 0.5 Basophils # 0.1 Nucleated Red Blood Cells # 0.0 Sodium Level 142 Potassium Level 4.0 Chloride Level 104 Carbon Dioxide Level 30 Anion Gap 8 Blood Urea Nitrogen 23 H Creatinine 1.00 Est Glomerular Filtrat Rate mL/min Glucose Level 109 Calcium Level 9.4 Phosphorus Level 3.9 Magnesium Level 2.3 Medications Medication Current Medications Magnesium Hydroxide (Milk Of Mag) 30 ml BID PRN PO CONSTIPATION; Start 03/08/19 at 23:30 Lactulose (Enulose) 20 gm DAILY PRN PO CONSTIPATION Last administered on 03/09/19 16:49; Admin Dose 20 GM; Start 03/08/19 at 23:30 Bisacodyl (Dulcolax Supp) 10 mg DAILY PRN [place] CONSTIPATION; Start 03/08/19 at 23:30 Ondansetron HCl (Zofran Tab) 4 mg Q6H PRN PO NAUSEA AND/OR VOMITING; Start 03/08/19 at 23:45 Oxybutynin Chloride (Ditropan Xl) 10 mg DAILY PO Last administered on 03/13/19 08:17; Admin Dose 10 MG; Start 03/09/19 at 09:00 Pantoprazole (Protonix Tab) 40 mg DAILY@06 PO Last administered on 03/14/19 06:34; Admin Dose 40 MG; Start 03/09/19 at 06:00 Sulfadiazine (Sulfadiazine) 1,000 mg QID PO Last administered on 03/13/19 22:13; Admin Dose 1,000 MG; Start 03/09/19 at 09:00 Donepezil HCl (Aricept) 5 mg BID PO Last administered on 03/13/19 22:14; Admin Dose 5 MG; Start 03/09/19 at 09:00 Lorazepam (Ativan) 1 mg HS PRN PO INSOMNIA Last administered on 03/12/19 21:44; Admin Dose 1 MG; Start 03/08/19 at 23:45 Acetaminophen (Tylenol Tab) 650 mg Q6H PRN PO MILD PAIN(1-3)OR ELEVATED TEMP Last administered on 03/12/19 22:35; Admin Dose 650 MG; Start 03/08/19 at 23:45 Aspirin (Ecotrin) 325 mg DAILY PO Last administered on 03/13/19 08:18; Admin Dose 325 MG; Start 03/09/19 at 09:00 Atorvastatin Calcium (Lipitor) 10 mg DAILY@21 PO Last administered on 03/13/19 22:13; Admin Dose 10 MG; Start 03/09/19 at 21:00 Clonidine (Catapres) 0.1 mg Q8 PO Last administered on 03/14/19 06:35; Admin Dose 0.1 MG; Start 03/08/19 at 23:30 Clopidogrel Bisulfate (plaVIX) 75 mg DAILY PO Last administered on 03/13/19at 08:18; Admin Dose 75 MG; Start 03/09/19 at 09:00 Docusate Sodium (Colace) 100 mg Q12H PRN PO CONSTIPATION; Start 03/08/19 at 23:45 Metoprolol Succinate (Toprol Xl) 25 mg BID PO Last administered on 03/13/19at 08:36; Admin Dose 25 MG; Start 03/13/19 at 09:00 Nifedipine (Procardia Xl) 30 mg BID PO Last administered on 03/13/19at 22:14; Admin Dose 30 MG; Start 03/13/19 at 09:00 Losartan Potassium (Cozaar) 25 mg DAILY PO ; Start 03/13/19 at 09:00 JOSUE WADE MD March 14, 2019 08:22
[2019-03-14] MEDS: CLOPIDOGREL 75 MG TAB PO SCH (09:06)
[2019-03-14] MEDS: OXYBUTYNIN (XL) 5 MG TAB PO SCH (09:07)
[2019-03-14] MEDS: ASPIRIN (EC) 325 MG TAB PO SCH (09:07)
[2019-03-14] MEDS: DONEPEZIL 5 MG TAB PO SCH ×2 (09:08→21:02)
[2019-03-14] MEDS: NIFEdipine (XL) 30 MG TAB PO SCH ×2 (09:08→21:03)
[2019-03-14] MEDS: METOPROLOL (XL) 25 MG TAB PO SCH ×2 (09:08→21:04)
[2019-03-14] MEDS: SULFADIAZINE 500 MG TAB PO SCH ×4 (09:09→21:03)
[2019-03-14] MEDS: LOSARTAN 50 MG TAB PO SCH (09:09)
--- NOTE | 2019-03-14 13:10 | PN ---
Date/Time of Note Date/Time of Note DATE: 03/14/19 TIME: 13:10 Subjective Doing well Objective Vital Signs Date Temp Pulse Resp B/P (MAP) Pulse Ox O2 O2 Flow FiO2 Time Delivery Rate 03/14/19 98.2 58 18 176/81 95 Room Air 10:29 (112) Intake and Output 03/13/19 03/13/19 03/14/19 1515:00 23:00 07:00 IntakeIntake Total 1080 ml BalanceBalance 1080 ml Exam [id number] ambulation Results/Medications Result Diagram: 03/14/19 0555 03/14/19 0555 Results 24 hrs Laboratory Tests Test 03/14/19 05:55 White Blood Count 7.3 Red Blood Count 3.75 L Hemoglobin 11.3 L Hematocrit 35.7 L Mean Corpuscular Volume 95.2 Mean Corpuscular Hemoglobin 30.1 Mean Corpuscular Hemoglobin Concent 31.7 L Red Cell Distribution Width 14.0 Platelet Count 267 Mean Platelet Volume 8.6 Immature Granulocytes % 0.400 Neutrophils % 41.1 Lymphocytes % 39.8 Monocytes % 11.2 H Eosinophils % 6.7 Basophils % 0.8 Nucleated Red Blood Cells % 0.0 Immature Granulocytes # 0.030 Neutrophils # 3.0 Lymphocytes # 2.9 Monocytes # 0.8 Eosinophils # 0.5 Basophils # 0.1 Nucleated Red Blood Cells # 0.0 Sodium Level 142 Potassium Level 4.0 Chloride Level 104 Carbon Dioxide Level 30 Anion Gap 8 Blood Urea Nitrogen 23 H Creatinine 1.00 Est Glomerular Filtrat Rate mL/min Glucose Level 109 Calcium Level 9.4 Phosphorus Level 3.9 Magnesium Level 2.3 Medications Current Medications Magnesium Hydroxide (Milk Of Mag) 30 ml BID PRN PO CONSTIPATION; Start 03/08/19 at 23:30 Lactulose (Enulose) 20 gm DAILY PRN PO CONSTIPATION Last administered on 03/09/19at 16:49; Admin Dose 20 GM; Start 03/08/19 at 23:30 Bisacodyl (Dulcolax Supp) 10 mg DAILY PRN [place] CONSTIPATION; Start 03/08/19 at 23:30 Ondansetron HCl (Zofran Tab) 4 mg Q6H PRN PO NAUSEA AND/OR VOMITING; Start 03/08/19 at 23:45 Oxybutynin Chloride (Ditropan Xl) 10 mg DAILY PO Last administered on 03/14/19 09:07; Admin Dose 10 MG; Start 03/09/19 at 09:00 Pantoprazole (Protonix Tab) 40 mg DAILY@06 PO Last administered on 03/14/19 06:34; Admin Dose 40 MG; Start 03/09/19 at 06:00 Sulfadiazine (Sulfadiazine) 1,000 mg QID PO Last administered on 03/14/19 09:09; Admin Dose 1,000 MG; Start 03/09/19 at 09:00 Donepezil HCl (Aricept) 5 mg BID PO Last administered on 03/14/19 09:08; Admin Dose 5 MG; Start 03/09/19 at 09:00 Lorazepam (Ativan) 1 mg HS PRN PO INSOMNIA Last administered on 03/12/19 21:44; Admin Dose 1 MG; Start 03/08/19 at 23:45 Acetaminophen (Tylenol Tab) 650 mg Q6H PRN PO MILD PAIN(1-3)OR ELEVATED TEMP Last administered on 03/12/19 22:35; Admin Dose 650 MG; Start 03/08/19 at 23:45 Aspirin (Ecotrin) 325 mg DAILY PO Last administered on 03/14/19 09:07; Admin Dose 325 MG; Start 03/09/19 at 09:00 Atorvastatin Calcium (Lipitor) 10 mg DAILY@21 PO Last administered on 03/13/19 22:13; Admin Dose 10 MG; Start 03/09/19 at 21:00 Clopidogrel Bisulfate (plaVIX) 75 mg DAILY PO Last administered on 03/14/19 09:06; Admin Dose 75 MG; Start 03/09/19 at 09:00 Docusate Sodium (Colace) 100 mg Q12H PRN PO CONSTIPATION; Start 03/08/19 at 23:45 Metoprolol Succinate (Toprol Xl) 25 mg BID PO Last administered on 03/14/19 09:08; Admin Dose 25 MG; Start 03/13/19 at 09:00 Nifedipine (Procardia Xl) 30 mg BID PO Last administered on 03/14/19 09:08; Admin Dose 30 MG; Start 03/13/19 at 09:00 Clonidine (Catapres) 0.05 mg Q8 PO ; Start 03/14/19 at 14:00 Losartan Potassium (Cozaar) 50 mg DAILY PO Last administered on 03/14/19at 09:09; Admin Dose 50 MG; Start 03/14/19 at 09:00 Assessment/Plan Additional Assessment/Plan Rehab- Left cerebrovascular accident Continue current rehab, anticipate dc tomorrow Dysarthria. Oropharyngeal dysphagia. Hypertension. Crohn's colitis. Anemia. Prostate carcinoma. Osteoarthritis. Prerenal azotemia. BOY HANSEN MD March 14, 2019 13:10
[2019-03-14] MEDS: ATORVASTATIN 10 MG TAB PO SCH (21:03)
[2019-03-15 02:00] VITALS: BP 132/65; PULSE 65; RESP 18
[2019-03-15] MEDS: PANTOPRAZOLE (EC) 40 MG TAB PO SCH (06:42)
--- NOTE | 2019-03-15 08:28 | CONS ---
Assessment/Plan Assessment/Plan Assessment/Plan (Daily) 1. 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 2. BP controlled on current regimen and will not need po catarpes 3. DC is planned and I agree 4. I should see him next week in the office Consultation Date/Type/Reason Admit Date/Time March 08, 2019 at 22:13 Initial Consult Date Date/Time of Note DATE: 03/15/19 TIME: 08:25 Detailed Summary Respiratory: No shortness of breath Cardiovascular: No chest pain Gastrointestinal: no complaints Genitourinary: no complaints Exam/Review of Systems Exam Vitals Vital Signs Date Temp Pulse Resp B/P (MAP) Pulse Ox O2 O2 Flow FiO2 Time Delivery Rate 03/15/19 98.0 65 18 132/65 95 Room Air 02:00 (87) Intake and Output 03/14/19 03/14/19 03/15/19 1515:00 23:00 07:00 IntakeIntake Total 240 ml 120 ml 1350 ml BalanceBalance 240 ml 120 ml 1350 ml Neck: No jvd Respiratory: clear to auscultation Cardiovascular: regular rate and rhythm Gastrointestinal: soft Extremities: No edema 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: focal weakness (right hemip) Results Result Diagram: 03/14/19 0555 03/14/19 0555 Medications Medication Current Medications Magnesium Hydroxide (Milk Of Mag) 30 ml BID PRN PO CONSTIPATION; Start 03/08/19 at 23:30 Lactulose (Enulose) 20 gm DAILY PRN PO CONSTIPATION Last administered on 03/09/19at 16:49; Admin Dose 20 GM; Start 03/08/19 at 23:30 Bisacodyl (Dulcolax Supp) 10 mg DAILY PRN [place] CONSTIPATION; Start 03/08/19 at 23:30 Ondansetron HCl (Zofran Tab) 4 mg Q6H PRN PO NAUSEA AND/OR VOMITING; Start 03/08/19 at 23:45 Oxybutynin Chloride (Ditropan Xl) 10 mg DAILY PO Last administered on 03/14/19at 09:07; Admin Dose 10 MG; Start 03/09/19 at 09:00 Pantoprazole (Protonix Tab) 40 mg DAILY@06 PO Last administered on 03/15/19at 06:42; Admin Dose 40 MG; Start 03/09/19 at 06:00 Sulfadiazine (Sulfadiazine) 1,000 mg QID PO Last administered on 03/14/19 21:03; Admin Dose 1,000 MG; Start 03/09/19 at 09:00 Donepezil HCl (Aricept) 5 mg BID PO Last administered on 03/14/19 21:02; Admin Dose 5 MG; Start 03/09/19 at 09:00 Lorazepam (Ativan) 1 mg HS PRN PO INSOMNIA Last administered on 03/12/19 21:44; Admin Dose 1 MG; Start 03/08/19 at 23:45 Acetaminophen (Tylenol Tab) 650 mg Q6H PRN PO MILD PAIN(1-3)OR ELEVATED TEMP Last administered on 03/12/19 22:35; Admin Dose 650 MG; Start 03/08/19 at 23:45 Aspirin (Ecotrin) 325 mg DAILY PO Last administered on 03/14/19 09:07; Admin Dose 325 MG; Start 03/09/19 at 09:00 Atorvastatin Calcium (Lipitor) 10 mg DAILY@21 PO Last administered on 03/14/19 21:03; Admin Dose 10 MG; Start 03/09/19 at 21:00 Clopidogrel Bisulfate (plaVIX) 75 mg DAILY PO Last administered on 03/14/19 09:06; Admin Dose 75 MG; Start 03/09/19 at 09:00 Docusate Sodium (Colace) 100 mg Q12H PRN PO CONSTIPATION; Start 03/08/19 at 23:45 Metoprolol Succinate (Toprol Xl) 25 mg BID PO Last administered on 03/14/19 21:04; Admin Dose 25 MG; Start 03/13/19 at 09:00 Nifedipine (Procardia Xl) 30 mg BID PO Last administered on 03/14/19 21:03; Admin Dose 30 MG; Start 03/13/19 at 09:00 Clonidine (Catapres) 0.05 mg Q8 PO Last administered on 03/15/19 06:45; Admin Dose 0.05 MG; Start 03/14/19 at 14:00 Losartan Potassium (Cozaar) 50 mg DAILY PO Last administered on 03/14/19 09:09; Admin Dose 50 MG; Start 03/14/19 at 09:00 JOSUE WADE MD March 15, 2019 08:28
[2019-03-15] MEDS: OXYBUTYNIN (XL) 5 MG TAB PO SCH (09:11)
[2019-03-15 09:15] VITALS: BP 139/69; PULSE 65; RESP 18
[2019-03-15] MEDS: SULFADIAZINE 500 MG TAB PO SCH (09:17)
[2019-03-15] MEDS: NIFEdipine (XL) 30 MG TAB PO SCH (09:17)
[2019-03-15] MEDS: LOSARTAN 50 MG TAB PO SCH (09:17)
[2019-03-15] MEDS: ASPIRIN (EC) 325 MG TAB PO SCH (09:17)
[2019-03-15] MEDS: DONEPEZIL 5 MG TAB PO SCH (09:18)
[2019-03-15] MEDS: CLOPIDOGREL 75 MG TAB PO SCH (09:18)
[2019-03-15] MEDS: METOPROLOL (XL) 25 MG TAB PO SCH (09:20)
--- NOTE | 2019-03-15 14:13 | DS ---
Date/Time of Note Date/Time of Note DATE: 03/15/19 TIME: 14:13 Discharge Summary Admission/Discharge Info Admit Date/Time March 08, 2019 at 22:13 Discharge Date/Time March 15, 2019 at 12:00 Discharge Diagnosis 1. Left cerebrovascular accident. 2. Dysarthria. 3. Oropharyngeal dysphagia. 4. Hypertension. 5. Crohn's colitis. 6. Anemia. 7. Prostate carcinoma. 8. Osteoarthritis. 9. Prerenal azotemia. 10. Improvements in self care, mobility and cognition Patient Condition: Good Hospital Course The patient was admitted for comprehensive interdisciplinary rehabilitation and made steady functional gains from a Mod level to a S level for self care tasks and mobility including ambulating over 150 feet with the use of a FWW. Patient is being discharged home with the recommendation of home health PT, OT and RN follow up. The DC meds are per the medication reconciliation sheet. The discharge equipment recommendations include: FWW, BSC, shower chair. The patient will follow up with PMD upon DC. Home Meds Active Scripts Oxybutynin Chloride* (Ditropan* XL) 5 Mg Tabsr, 10 MG PO DAILY for 30 Days, TAB Prov:JOSUE WADE MD 03/08/19 Ondansetron Hcl* (Ondansetron Hcl*) 4 Mg Tablet, 4 MG PO Q6H PRN for NAUSEA/VOMITING for 30 Days, TAB Prov:JOSUE WADE MD 03/08/19 Docusate Sodium* (Colace*) 100 Mg Capsule, 100 MG PO Q12H PRN for .CONSTIPATION for 30 Days, CAP Prov:JOSUE WADE MD 03/08/19 Acetaminophen* (Tylenol*) 325 Mg Tablet, 650 MG PO Q6H PRN for .PAIN 1-3 OR TEMP for 30 Days, TAB Prov:JOSUE WADE MD 03/08/19 Aspirin (Aspir-Isabel) 325 Mg Tablet.dr, 325 MG PO DAILY for 30 Days Prov:JOSUE WADE MD 03/08/19 Nifedipine (Procardia Xl) 30 Mg Tab.er.24, 30 MG PO BID for 30 Days, TAB Prov:JOSUE WADE MD 03/08/19 Metoprolol Succinate* (Toprol XL*) 25 Mg Tab.sr.24h, 25 MG PO BID for 30 Days Prov:JOSUE WADE MD 03/08/19 Clonidine Hcl* (Catapres*) 0.1 Mg Tablet, 0.1 MG PO Q8 for 30 Days, TAB Prov:JOSUE WADE MD 03/08/19 Atorvastatin (Atorvastatin) 10 Mg Tablet, 10 MG PO HS for 30 Days, TAB Prov:JOSUE WADE MD 03/08/19 Enoxaparin Sodium* (Enoxaparin Sodium*) 40 Mg/0.4 Ml Syringe, 40 MG SC DAILY for 7 Days Prov:JOSUE WADE MD 03/08/19 Clopidogrel Bisulfate (Clopidogrel) 75 Mg Tablet, 75 MG PO DAILY for 30 Days, TAB Prov:JOSUE WADE MD 03/08/19 Donepezil* (Aricept*) 5 Mg Tablet, 5 MG PO BID for 30 Days, TAB Prov:JOSUE WADE MD 03/08/19 Sulfasalazine (Azulfidine) 500 Mg Tablet, 1000 MG PO QID for 30 Days, TAB Prov:JOSUE WADE MD 03/08/19 Reported Medications Memantine* (Namenda*) 5 Mg Tablet, 5 MG PO BID, #60 TAB 03/05/19 Omeprazole* (Omeprazole*) 20 Mg Capsule.dr, 20 MG PO DAILY, #30 CAP 03/05/19 Lorazepam* (Lorazepam*) 1 Mg Tablet, 1 MG PO HS PRN for SLEEP, #30 TAB 03/05/19 Donepezil* (Donepezil*) 5 Mg Tablet, 5 MG PO BID, #30 TAB 03/05/19 Discontinued Reported Medications Rosuvastatin Calcium* (Crestor*) 10 Mg Tablet, 10 MG PO QHS, #30 TAB 03/05/19 Oxybutynin Chloride* (Ditropan* XL) 5 Mg Tabsr, 5 MG PO DAILY, TAB.SA 03/05/19 Metoprolol Succinate* (Toprol XL*) 50 Mg Tab.er.24h, 50 MG PO DAILY, #30 TAB 03/05/19 Primary Care Provider MD JADE Lyons LIVA L. MD March 15, 2019 14:13
== END 2019-03-15 12:00 | disposition home health service (06) | DRG 57 ==
LOC: VRC 22:13
PROVIDERS: ADMIT Physical Medicine & Rehabilitation; ATTEND Internal Medicine
PROC: F07Z5ZZ Bed Mobility Treatment (ICD-10-PCS; principal; 2019-03-08)
PROC: F08Z2ZZ Grooming/Personal Hygiene Treatment (ICD-10-PCS; 2019-03-08)
PROC: F06Z6ZZ Communicative/Cognitive Integration Skills Treatment (ICD-10-PCS; 2019-03-08)
DX: I69.351 Hemiplegia and hemiparesis following cerebral infarction affecting right dominant side (principal); I69.322 Dysarthria following cerebral infarction; I69.391 Dysphagia following cerebral infarction; R13.10 Dysphagia, unspecified; I10 Essential (primary) hypertension; D64.9 Anemia, unspecified; K52.9 Noninfective gastroenteritis and colitis, unspecified; Z91.81 History of falling; Z79.82 Long term (current) use of aspirin; C61 Malignant neoplasm of prostate; M19.90 Unspecified osteoarthritis, unspecified site; R79.89 Other specified abnormal findings of blood chemistry
CPT/HCPCS: 80048; 80053; 81003; 83735; 84100; 85025; 86320; 87081; 87086; 92507; 92523; 92526; 92610; 97110; 97112; 97116; 97150; 97163; 97530; 97535; J1650